=== PATIENT | female | born 1950 | race Caucasian/White ===

== ENCOUNTER → 2017-07-31 | Outpatient (CLI) | payer OTHER, BC | LOC: NUC 08:18 | DX: M81.0 Age-related osteoporosis without current pathological fracture (principal); M85.89 Other specified disorders of bone density and structure, multiple sites; Z78.0 Asymptomatic menopausal state ==

== ENCOUNTER → 2019-03-10 | Outpatient (CLI) | payer OTHER, BC | LOC: NUC 10:20 | DX: M81.0 Age-related osteoporosis without current pathological fracture (principal) ==

== ENCOUNTER 2019-09-17 09:52 | Inpatient (IN) | payer OTHER, BC ==
[~2019-09-17] VITALS: Ht 13.9 cm; Wt 58.7 kg
[2019-09-17] MEDS ORDERED: AZELASTINE205.5 MCG/ OPHTHALMIC (10:18)
[2019-09-17] MEDS ORDERED: CLONAZEPAM 0.50.5 M1 PO (10:19)
[2019-09-17] MEDS ORDERED: LITHIUM CARBON300 M3 PO (10:20)
[2019-09-17] MEDS ORDERED: DULCOLAX STOOL100 M1 PO (10:20)
[2019-09-17] MEDS ORDERED: OMEPRAZOLE40 MG PO (10:21)
[2019-09-17] MEDS ORDERED: ESKALITH CR450 MG PO (10:21)
[2019-09-17] MEDS ORDERED: INDERAL LA120 M1 PO (10:21)
[2019-09-17] MEDS ORDERED: QUETIAPINE FUM400 M1 PO (10:25)
[2019-09-17] MEDS ORDERED: SEROQUEL 25 MG25 M1 PO (10:25)
[2019-09-17] MEDS ORDERED: RANITIDINE 150150 MG PO (10:26)
[2019-09-17] MEDS ORDERED: IRON325 M1 PO (10:28)
[2019-09-17] MEDS ORDERED: DESYREL150 MG PO (10:28)
[2019-09-17] MEDS ORDERED: PEPCID40 MG PO (10:30)
[2019-09-17] MEDS ORDERED: ZINC SULFATE220 MG PO (10:30)
[2019-09-17] MEDS ORDERED: VITAMIN B-121000 MC2 PO (10:31)
[2019-09-17] MEDS ORDERED: VITAMIN D250000 UNIT PO (10:31)
[2019-09-17 10:57] LABS: URINE BILIRUBIN NEGATIVE (Negative); URINE BLOOD NEGATIVE (Negative); URINE CLARITY CLEAR; URINE COLOR YELLOW; URINE GLUCOSE-RANDOM* NEGATIVE (Negative); URINE KETONES NEGATIVE (Negative); URINE LEUKOCYTES-REFLEX NEGATIVE (Negative); URINE PROTEIN (DIPSTICK) NEGATIVE (Negative); URINE SPECIFIC GRAVITY <= 1.005 (1.005-1.035)
[2019-09-17 10:59] LABS: ABSOLUTE NEUTROPHILS 4.3 thou/uL (1.4-8.2); BASOPHILS 0.8 % (0.0-2.0); EOSINOPHILS 3.7 % (0.0-3.0); HEMATOCRIT 35.2 % (37.0-47.0); HEMOGLOBIN 11.5 gm/dL (12.0-15.0); LYMPHOCYTES 18.8 % (24.0-44.0); MCH 31.3 pg (26.0-34.0); MCHC 32.6 g/dL (28.0-37.0); MONOCYTES 6.2 % (1.0-8.0); PLATELET COUNT 347 thou/uL (150-400); POLYS 70.5 % (36.0-66.0); RBC 3.66 mil/uL (4.20-5.00); RDW 13.9 % (10.5-14.5); WBC 6.2 thou/uL (4.0-11.0)
[2019-09-17 11:01] LABS: URINE NITRITE-REFLEX POSITIVE (Negative)
[2019-09-17 11:04] LABS: ANION GAP 5 mmol/L (7-16); BUN 20 mg/dL (7-18); CALCIUM 9.8 mg/dL (8.5-10.1); CHLORIDE 104 mmol/L (98-107); CO2 27 mmol/L (21-32); CREATININE 1.3 mg/dL (0.6-1.0); GLUCOSE 109 mg/dL (74-106); POTASSIUM 3.9 mmol/L (3.5-5.1); SODIUM 136 mmol/L (136-145)
[2019-09-17 11:10] LABS: BACTERIA-REFLEX 1-9 Few /HPF (None Seen); CASTS None Seen /LPF (None Seen); CRYSTALS None Seen /LPF (None Seen); SQUAMOUS None Seen /LPF (0-3); URINE RBC 0-2 Rare /HPF (0-2); URINE WBC-REFLEX None Seen /HPF (0-5)
[2019-09-17 11:16] LABS: AMP/METHAMP Negative (Negative); BARBITURATES Negative (Negative); BENZODIAZEPINES Negative (Negative); COCAINE Negative (Negative); METHADONE Negative (Negative); OPIATES Negative (Negative); PCP Negative (Negative)
[2019-09-17 11:16] LABS: ALBUMIN 3.7 g/dL (3.4-5.0); SALICYLATE < 2.8 mg/dL (2.8-20.0); SGOT 15 U/L (15-37); SGPT 15 U/L (30-65); TOTAL BILIRUBIN 0.4 mg/dL (<0.1-1.0)
[2019-09-17 12:03] VITALS: BP 153/87
[2019-09-17 12:36] VITALS: BP 160/121
[2019-09-17 13:09] VITALS: BP 155/108
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
--- NOTE | 2019-09-17 16:43 | NUR ---
RECEIVED HALDOL 5MG AND ATIVAN 1MG IM AT APPROX 1530 FOR INCREASED RESTLESSNESS/ANXIETY-AGITATION YELLING OUT "HELP ME,HELP ME" LOUDLY TEARFUL. OUT OF BED 3-4 TIMES TRIGGERING ALARM-WHEN [PLACED IN DAYROOM UP SEVERAL TIMES APPEARING UNABLE TO SIT STILL-YELLING AT [facility] "HELP ME-HELP ME" GAIT IS UNSTEADY
--- NOTE | 2019-09-17 17:41 | EKG ---
[place] [address] [place] [address] ELECTROCARDIOGRAM REPORT Name: SEEMA CAGE Room #: 518A-A ADM IN M.R.#: [id number] Admission: 09/17/19 Attend Phys: Nahun Coughlin DO Discharge: Date of : 50 Report #: [id number] THIS REPORT FOR: //name// [facility] ED Test Date: 2019-09-17 Test Time: 12:29:56 Pat Name: SEEMA CAGE Department: Room: [facility] Gender: F Station Engineer: RONNY : 1950 Requested By: Ish Calles Order Number: [id number] MD: Morris Fry Measurements Intervals [place] Rate: 113 P: 81 HI: 146 QRS: 178 QRSD: 115 T: 35 QT: 386 QTc: 530 Interpretive Statements Sinus tachycardia Poor R wave progression Artifact in lead(s) I,aVR,aVL,V1,V2,V3,V4,V5,V6 Compared to ECG 04/24/2000 13:43:43 no significant change was found Electronically Signed On 09-17-2019 17:41:07 CDT by Morris Fry [email or web address] <ELECTRONICALLY SIGNED> By: Morris Fry MD, FAC 09/17/19 1741 1229 1229 Morris Fry MD, LOCATED WITHIN [facility] /EPI
[2019-09-17 19:40] VITALS: BP 127/79
[2019-09-18 00:45] VITALS: BP 127/79
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
[2019-09-18 09:03] VITALS: BP 132/68
--- NOTE | 2019-09-18 11:12 | NUR ---
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 She usually cycles through her manic phases every 3 to 4 years but now is rapid cycling and has spent most of her time in inpt this last 2 years. Dght admits that she cannt go home and will need a Level II completed and an AL with memory care for a [place] placement.
--- NOTE | 2019-09-18 14:04 | NUR ---
HAS HAD EPISODES OF LOUD CRYING,SOBBING THROUGHOUT SHIFT. YELLING OUT-"PLEASE HELP,PLEASE HELP I NEED JUICE" OR "COME AND GET THE FOOD OUT OF MY HAIR" REPEATING "PLEASE,PLEASE" SPEECH IS SLURRED-APPEARS DROWSY. GAIT UNSTEADY AT TIMES-IMPULSIVE AND INTRUSIVE AT TIMES ENTERING [facility] ROOMS TO GET STAFF. ORIENTED TO NAME AND PLACE. ATIVAN 1MG GIVEN PO PRN AT 0915 WITH AM MEDICATIONS. ABLE TO FEED SELF AT MEALS AND TAKES PO FLUIDS WELL. DENIES C/O PAIN BUT LATER STATES "BLADDER HURTS" PREOCCUPIED WITH URINATION-HAS VOIDED X2-3 SO FAR THIS SHIFT BUT STATES HAS NOT BEEN ABLE TO URINATE FOR "DAYS" NO NOTED OR REPORTED A/V HALLUCINATIONS. SOME DELUSIONAL THINKING IN FORM OF DELUSIONS OD PERSECUTION -"YOU GAVE EVERYONE ELSE THEIR TRAY EXCEPT ME"
[2019-09-18 19:35] VITALS: BP 113/75
[2019-09-18 21:15] VITALS: BP 113/75
--- NOTE | 2019-09-18 21:34 | NUR ---
PT TO CT FOR EXAM. PT NOW IN ED WITH PA ASSESSING PATIENT.
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
--- NOTE | 2019-09-18 21:44 | NUR ---
SKY SUTURING PATIENT'S LACERATION.
--- NOTE | 2019-09-18 21:47 | NUR ---
PT ALSO GETTING ISAAK TO LAC SITE. REMAINS AT BASELINE NEUROLOGICALLY.
--- NOTE | 2019-09-18 21:49 | NUR ---
Spoke with Dr. Gale regarding fall. Reports to call him if CT abnormal.
[2019-09-18 22:15] VITALS: BP 140/81
--- NOTE | 2019-09-19 05:08 | NUR ---
The pts. neuro checks q 2 hours tonite in the nite were wnl. She was awakened for the checks, as she slept snoring at times but sleeping otherwise soundly. She said "Oh, hi, what do you want" when awakened/groggy still, compliant with assessment, and returned to sleep.
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
[2019-09-19 08:28] VITALS: BP 134/82
--- NOTE | 2019-09-19 08:39 | EKG ---
[address] [place] [address] ELECTROCARDIOGRAM REPORT Name: SEEMA CAGE Room #: 518B- ADM IN M.R.#: [id number] Admission: 09/17/19 Attend Phys: Nahun Coughlin DO Discharge: Date of : 50 Report #: [id number] THIS REPORT FOR: //name// [facility] Test Date: 2019-09-18 Test Time: 11:35:41 Pat Name: SEEMA CAGE Department: Room: [facility] Gender: F Scientist/Engineer: Eugenia EVANGELISTA : 1950 Requested By: Nahun Coughlin Order Number: [id number] MD: Morris Fry Measurements Intervals [place] Rate: 64 P: 70 NC: 170 QRS: 35 QRSD: 97 T: 50 QT: 417 QTc: 431 Interpretive Statements Sinus rhythm Normal tracing Compared to ECG 09/17/2019 12:29:56 Sinus tachycardia no longer present Poor R-wave progression no longer present Electronically Signed On 09-19-2019 8:39:28 CDT by Morris Fry [email or web address] <ELECTRONICALLY SIGNED> By: Morris Fry MD, [facility] 09/19/19 0839 1135 1135 Morris Fry MD, [facility] /EPI
[2019-09-19 10:43] VITALS: BP 134/82
--- NOTE | 2019-09-19 15:06 | NUR ---
THE PATIENT HAS BEEN ANXIOUS, IRRITATED AND VERY IMPULSIVE THROUGH OUT THE DAY. SHE CONTINUOUSLY CHATTED ALOUD ANNOYING THE OTHER PATIENTS. THE PATIENT WAS ADMINISTERED PRN'S IM THIS MORNING. THE PATIENT'S THORAZINE MEDICATION WAS INCREASED. SHE HAS DIFFICULTY FOCUSING AND SHE IS EMOTIONALLY UNSTABLE. THE PATIENT HASNT HAD MUCH SLEEP IN THE LAST 24 HOURS. SHE IS NOW SLEEPING BUT HAS AWAKEN PERIODICALLY. HER MEAL INTAKE HAS BEEN MINIMUM TODAY. HOWEVER, SHE EATS HER MEALS IN THE DAY ROOM. NEURO CHECKS HAVE BEEN WNL'S. THE PATIENT QUESTIONS STAFF TO CALL HER DAUGHTER LORENA WHO IS HER DPOA SEVERAL TIMES THIS MORNING. BUT HER DAUGHTER WAS NOT AVAILABLE. THE PATIENT ESCALATED BUT WAS REDIRECTED WITH VERY LITTLE RESULTS FROM THE PATIENT. FOR HER SAFETY SHE IS IN A WC WHEN TRANSPORTING WITH A LAP YURIDIA. SHE IS VERY IRRITATED WITH BEING IN THE WC. TO CANTACT THE DOCTORS. SHE IS MANIC AND RESTLESS MOST OF THE TIME. SHE IS INCONTINENT BUT WILL ASK STAFF TO TAKE HER TO THE BATHROOM. SHE IS WEARING BRIEFS AND DO NOT LIKE IT. 12 TO 15 MIN. CHECKS. AT THIS TIME SHE IS RESTING QUIETLY. CONTINUE TO MONITOR THE PATIENT.
[2019-09-19 17:00] VITALS: BP 114/67
[2019-09-19 20:34] VITALS: BP 126/72
--- NOTE | 2019-09-20 07:45 | NUR ---
1909-report received from day shift and care assumed. She was chanting and singing songs in the nite almost continously. She wanted later to go into her room and do chanting. She was attended to when she requested to toilet her in the bathroom in the nite. She takes meds. whole with water. She asked to not "be left alone", "do you still love me?' while she chanted. She said when asked why she yells all the time she said "it is my ackathesia".She was given Ativan 1mg. po and Haldol 5 mg. po at 2122 for anxiety and was HS med. compliant and this was not effecitve. She had Tylenol 650 mg. po for head pain also, and it was effectife. was called at 0240 for another med. for anxiousness and she was given Seroquel 50 mg. po x 1 now and it was partially effective for about only 2 hours. She slept total 5 hours tonite. She was given Hydrocodone/apap at 0501 for head pain/bavck of head and she reported it was effective this morning. She used fall precautions in the nite, bed and chair alarm, and was continent in the nite with staff assist. anxiety/chanting loud
--- NOTE | 2019-09-20 14:56 | NUR ---
CONTINUES TO SING OUT AND CHANT, REPETITAVE THINGS, SUCH "DO YOU LOVE ME", PLEASE HELP ME" SHE WILL SING AND REPEAT CONSTANTLY, SHE IS NOT AGGRESSIVE OR ANGRY, ALERT AND ORIENTED, WHEN SHE IS DIRECTABLE SHE WILL ANSWER QUESTIONS APPROPRIATELY, SHE DOES QUIET HERSELF WHEN SHE IS REMINDED, SHE IS MEDICATION AND MEAL COMPLIANT, DENIES SI/HI AND AVH, BUT DOES STATE SHE THINKS SHE IS DEPRESSED. CONTINUE TO MONITOR FOR SAFETY AND BEHAVIORS, REDIRECT AND REMIND NEEDED.
[2019-09-20 15:19] VITALS: BP 144/90
[2019-09-20 20:00] VITALS: BP 155/83
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
--- NOTE | 2019-09-21 | NUR ---
ASSUMED CARE FROM PREVIOUS SHIFT PT YELLING OUT WANTING WATER AND TO BE CHANGED DUE TO HER INCONTINENT, DENIES PAIN, ATTEMTED TO DISCUSS PLAN OF CARE BUT PT IS CONFUSED. BED ALARM ON FOR SAFETY, FREQ ROUNDING PER PROTOCOL, PO MEDICATION TAKEN EASILY, WILL CONTINUE WIT PRESENT PLAN OF CARE AND WILL REPORT CHANGES OR ABNORMAL FINDINGS.
[2019-09-21 09:03] VITALS: BP 94/57
--- NOTE | 2019-09-21 11:08 | NUR ---
UP FOR BREAKFAST, SHE IS WEAK AND HAS TREAMORS THIS MORNING, SHE HAS TAKEN HER MEDICATION, AND NEEDED ASSISTANCE WITH FEEDING, SHE HAS NOT CRIED OUT MUCH THIS MORNING, BUT VOICE IS NOT LOUD, SHE REMAINS A HIGH FALL RISK, LACERATION ON BACK OF HER HEAD IS INTACT WITH SUTURES, SHE HAS NO COMPLAINTS OF PAIN, INCONTINENT OF BLADDER THIS A.M. WILL CONTINUE TO MONITOR FOR BEHAVIORS AND SAFETY ISSUES.
[2019-09-21 19:50] VITALS: BP 116/69
--- NOTE | 2019-09-21 23:03 | NUR ---
PATIENT IN BED SINCE I CAME ON UNIT AT 1900. SHE DID SIT UP ON SIDE OF BED WHEN I GAVE HER HER HS MEDS. SHE HAS BEEN UP TO THE BATHROOM TO VOID. PATIENT STILL CALLS OUT OCCASIONALLY IN A SING SONGY VOICE WHEN SHE NEEDS SOMETHING. LACERATION TO BACK OF HEAD INTACT, NO OOZING. PATIENT WANTED TO GO BACK TO SLEEP AFTER TAKING EVENING MEDS. SHE IS SLEEPING AT THIS TIME. SHE HAS A FLAT AFFECT TO HER FACE AND MONOTONE VOICE. HER LAST BM WAS ON THE . PATIENT TOOK HER MEDS WHOLE TONITE WITH WATER. SHE REFUSED A SNACK. BED IN LOW POSITION AND BED ALARM ON.
[2019-09-21 23:09] VITALS: BP 116/69
[2019-09-22 08:09] VITALS: BP 148/93
[2019-09-22 10:42] VITALS: BP 148/93
--- NOTE | 2019-09-22 11:23 | NUR ---
THE PATIENT HAS BEEN IN THE DAY ROOM THIS AM DROWSY. THE PATIENT AMBULATED WITH PT AND REPORT WAS THAT SHE DID NOT DO SO WELL.PT EXPRESSED THAT IT'S PROBABLY BECAUSE SHE IS DROWSY AND SLEEPY. THE PATIENT IS ALERT. SHE IS IN A WC WITH A LAP YURIDIA FOR HER SAFETY. THE PATIENT CONTINUES TO HUM ALOUD DURING MEALS WHEN SHE IS NOT EATING. SHE IS INCONTINENT BUT SHE WILL ASK TO GO TO THE BATHROOM AT TIMES. SHE HAS BEEN ORDERED A SPEECH CONSULT. TOE ON RIGHT FOOT IS BROKEN AND WEDGED TOGETHER. HEAD ISAAK IN PLACE. PATIENT IS ENCOURAGED TO FEED HERSELF. HOWEVER, STAFF HAS BEEN ASSISTING WITH MEALS.
--- NOTE | 2019-09-22 16:13 | NUR ---
YOU and Dr campos met with pt's dght and son. YOU provided them with a referral for [employer] sales executive to find placement. YOU provided placement options too.
[2019-09-22 20:08] VITALS: BP 120/79
[2019-09-22 23:03] VITALS: BP 120/79
--- NOTE | 2019-09-23 03:30 | NUR ---
PT IN DAYROOM EARLY IN SHIFT. DROWSY BUT ABLE TO RESPOND TO STAFF. HEAD WOUND CLEAN. VSS AND PT ALLOWED STAFF TO ASSESS. QUIET AND COOPERATIVE. AFTER HS MEDS AND SNACK, ESCORTED TO ROOM AND ASSISTED TO BED. CURRENTLY SLEEPING.
[2019-09-23 09:04] VITALS: BP 158/95
[2019-09-23 10:51] VITALS: BP 158/95
[2019-09-23 15:24] LABS: CALCIUM 10.2 mg/dL (8.5-10.1); CREATININE 1.1 mg/dL (0.6-1.0); POTASSIUM 4.5 mmol/L (3.5-5.1)
--- NOTE | 2019-09-23 16:19 | NUR ---
THE PATIENT HAS BEEN LETHARGIC THROUGH OUT THE SHIFT. SHE IS ALERT WHEN SHE IS SPOKEN TO. NO URINE OUTPUT AT 1622. THE PATIENT POSSIBLY VERY DRY. NO FOOD OR MEDICATIONS DURING BREAKFAST AND LUNCH. THE PATIENT WAS ORDERED A BMP, BLADDER SCAN PER 386 ML. A STRAIGHT CATH HAS BEEN ORDERED. HER CREATININE WAS 1.0. THE PATIENT KEEPS HER EYES CLOSED. LIPS ARE PORACHED AND DRY. THORAZINE AND DESYREL DISCONTINUED. PATIENT HAS BEEN QUIET AND CALM. SHE HAS BEEN SITTING IN A JERMAINE CHAIR WITH A LAP YURIDIA ON.
--- NOTE | 2019-09-23 17:00 | NUR ---
ATTEMPTED TO STRAIGHT CATH PT WITH 15 [place] CHANDLER, ATTEMPT UNSUCCESSFUL DUE TO PT CLINCHED UP AND UNABLE TO PENETRATE MEATUS. PT SHAKING TO ARMS AND LEGS, TREMOR TO MOUTH AND TOUNGE. WILL ATTEMPT WITH SMALLER STRAIGHT CATH.
--- NOTE | 2019-09-23 17:20 | NUR ---
GAVE PT ORAL CARE, PT STOPPED TREMORS TO MOUTH, TOUNGE, AND EXTREMETIES. PT APPEARS CALM.
--- NOTE | 2019-09-23 17:56 | NUR ---
PT HAD VOIDED LARGE AMOUNT OF URINE BEFORE SECOND ATTEMPT TO STRAIGHT CATH. PT CLEANED AND PUT ON FRESH BRIEF, PT BACK TO RECLINER AND TO DINNING ROOM. PT EYES OPEN.
[2019-09-23 20:16] VITALS: BP 152/92
--- NOTE | 2019-09-24 05:07 | NUR ---
Report received from day shift nurse at 1900 and care assumed. VS 36.8C, p=111, wo=359/92, oxy. 97%. She was lethargic in the evening, responded to her name, was quiet, and was taken to her bed. Her respirations were even and regular, she rested quietly all nite. She had a flushed face at about 0400 and temp. taken and =99.5 F. Nurse was successful with straight cath. and sample of urine per order.She was mumbling to herself and answered. Said yes to questions and tremoulous slight. She is resting again in her bed and awaiting UA report.
[2019-09-24 05:48] LABS: URINE BILIRUBIN NEGATIVE (Negative); URINE BLOOD 3+ (Negative); URINE CLARITY SL CLOUDY; URINE COLOR YELLOW; URINE GLUCOSE-RANDOM* NEGATIVE (Negative); URINE KETONES NEGATIVE (Negative); URINE NITRITE-REFLEX NEGATIVE (Negative); URINE PROTEIN (DIPSTICK) NEGATIVE (Negative); URINE UROBILINOGEN 0.2 E.U./dl (0.2-1.0)
[2019-09-24 05:53] LABS: URINE LEUKOCYTES-REFLEX 3+ (Negative)
[2019-09-24 06:08] LABS: BACTERIA-REFLEX >30 Many /HPF (None Seen); CASTS None Seen /LPF (None Seen); CRYSTALS None Seen /LPF (None Seen); MUCUS 0-3 Light strn/LPF (None Seen); SQUAMOUS 0-3 Few /LPF (0-3); TRANSITIONAL EPITHEL CELL 4-10 Moderate /LPF (None Seen)
--- NOTE | 2019-09-24 06:40 | NUR ---
The UA result was received. The on-call Nurse Practioner was called and Cipro 500 mg. po BID for 1 week was ordered. Culture is pending.
--- NOTE | 2019-09-24 10:51 | NUR ---
UPON INITIAL ASSESSMENT THIS AM IN ROOM EYES CLOSED-WILL RESPOND TO VERBAL COMMANDS AND REPOSITIONING WITH LOW MOANING BUT DOES NOT FOLLOW VERBAL COMMANDS TO OPEN EYES. FEELS WARM TO TOUCH-TEMP TAKEN AND IS 100.6. SOMULENT AND LETTING CRUSHED AM MEDS RUN OUT OF MOUTH-DR. KLEIN NOTIFIED AND ORDERS RECEIVED. DR. CONN ON FLOOR AT 0930 AND NOTIFIED OF ABOVE. THIS RN SPOKE WITH PT GUARDIan DAUGHTER LORENA WHO IS REQUESTING IV FLUIDS/ABX AND "WHATEVER IT TAKES TO GET HER BETTER" FULL CODE STATUS VERIFIED WITH DAUGHTER. IV STARTED IN LEFT FOREarm with 22 gaugue needle at approx 1000 and iv fluids initated per md order. STAFF AT BEDSIDE DURING IV FLUIDS INFUSING.
--- NOTE | 2019-09-24 10:57 | NUR ---
Pt admitted to [facility] unit on 09/17. Has been seen by speech therapist and changed to puree nectar diet 2 days ago. Team conference meeting this am: concerns for pt being obtunded, not eating, and need for possible medical intervention and transfer to acute unit. Will follow plan of care.
[2019-09-24 11:27] LABS: ABSOLUTE NEUTROPHILS 9.6 thou/uL (1.4-8.2); BASOPHILS 0.2 % (0.0-2.0); EOSINOPHILS 0.3 % (0.0-3.0); HEMATOCRIT 39.1 % (37.0-47.0); HEMOGLOBIN 12.6 gm/dL (12.0-15.0); LYMPHOCYTES 8.8 % (24.0-44.0); MCH 31.1 pg (26.0-34.0); MCHC 32.1 g/dL (28.0-37.0); MCV 96.7 fL (80.0-100.0); PLATELET COUNT 425 thou/uL (150-400); POLYS 82.7 % (36.0-66.0); RBC 4.04 mil/uL (4.20-5.00); RDW 14.2 % (10.5-14.5); WBC 11.6 thou/uL (4.0-11.0)
[2019-09-24 11:37] LABS: CALCIUM 10.3 mg/dL (8.5-10.1); CREATININE 1.2 mg/dL (0.6-1.0)
--- NOTE | 2019-09-24 14:32 | NUR ---
SW completed and submitted the DA 124 abc for a level II screen. The pt advocate that was referred to the family was Kaye Horta with [facility] [phone]. family is considering a LTC placement and stated they have the resources to cover these expenses.
--- NOTE | 2019-09-24 17:33 | NUR ---
SPOKE WITH PATIENTS DAUGHTER LORENA REGARDING DC FROM [address] [place] [address] AND PENDING ADMIT TO [address] [place] [address] [phone] CALLED TO JASON AND AWAITING DC/ROOM CLEAN TO TRANSFER TO [address] [place] [address] ACROSS FROM NURSING STATION D/T PT RECENT FALL AND HIGH FALLS RISK. DC MEDS INSTRUCTIONS REVIEWED WITH LORENA-PROVIDED WITH CONTACT NUMBER AND NEW ROOM NUMBER. IV FLUIDS NS INFUSING PER ORDER AT 125ML/HR PER MD ORDER. HAS BEEN INCONTNINET OF LARGE amounts oF URINE X3 SO FAR THIS SHIFT-PLACED ON BED WATT X 2 AND SO FAR HAS NOT USED. MORE ALERT WILL OPEN EYES ON COMMAND AND HAS REQUESTED SOMETHING TO DRINK X 2- WILL OCCASSIONALLY MOAN SOFTLY BUT NODS HEAD NO WHEN ASKED IF HAVING ANY PAIN/DISCOMFORT. VS OBTAINED AT 1700 AND BP 164/101 VIA MACHINE-FINE TREMOR OF UPPER EXTREMETIES AND HEAD/TORSO. BP CHECKED MANUALLY AND IS 160/72-N885-F-14 TEMP 98.9 O2 SAT 98 PERCENT. TYLENOL 650MG PO PRN CRUSHED ALONG WITH 1700 INDEROL CRUSHED WITH YOGURT-DID APPEAR TO SWALLOW WITHOUT DIFFICULTY BUT COUGHED 2-3 TIMES AFTER SWALLOWING.
[2019-09-24 17:43] VITALS: BP 160/80
--- NOTE | 2019-09-24 19:22 | NUR ---
PT REMAINS SOMULENT BUT RESPONSIVE TO VERBAL COMMANDS AT TIME OF DC. VS STABLE BP 154/70- P-98 R-14 02 SAT 98 PERCENT ON RA. IV TO LEFT FOREARM PATNET AND INGUSING NS AT RATE OF 125/HR PER ORDER DR. KLEIN. AFEBRILE CURRENTLY-TEMP 98.2 APPROX 45 MINUTES AFTER ADMINISTRATION OF PO TYLENOL. INCONTINENT OF URINE AND PERINEAL CARE PROVIDED,BARRIER CREAM APPLIED AND PT REPOSITIONED ON LEFT SIDE-NO OPEN AREAS TO SKIN NOTED DURING PERINEAL CARE.
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
== END 2019-09-24 19:28 | disposition short-term general hospital (02) | DRG 885 ==
LOC: ER 09:52 → SBH 12:05 → EROBS 12:05 → SBH 12:37
PROVIDERS: Emergency Medicine; ADMIT Psychiatry & Neurology Psychiatry
PROC: 0HQ0XZZ Repair Scalp Skin, External Approach (ICD-10-PCS; principal; 2019-09-18)
DX: F31.2 Bipolar disorder, current episode manic severe with psychotic features (principal); A41.9 Sepsis, unspecified organism; N39.0 Urinary tract infection, site not specified; N17.9 Acute kidney failure, unspecified; J98.11 Atelectasis; F03.90 Unspecified dementia, unspecified severity, without behavioral disturbance, psychotic disturbance, mood disturbance, and anxiety; F41.9 Anxiety disorder, unspecified; G20 Parkinson's disease; F02.80 Dementia in other diseases classified elsewhere, unspecified severity, without behavioral disturbance, psychotic disturbance, mood disturbance, and anxiety; D64.9 Anemia, unspecified; K21.9 Gastro-esophageal reflux disease without esophagitis; K59.00 Constipation, unspecified; S01.01XA Laceration without foreign body of scalp, initial encounter; X58.XXXA Exposure to other specified factors, initial encounter; Y93.89 Activity, other specified; Z79.899 Other long term (current) drug therapy; Z88.0 Allergy status to penicillin; Z88.1 Allergy status to other antibiotic agents; Y92.89 Other specified places as the place of occurrence of the external cause; Y99.8 Other external cause status
CPT/HCPCS: 10880

== ENCOUNTER 2019-09-24 16:50 | Inpatient (IN) | payer OTHER, BC ==
[~2019-09-24] VITALS: Ht 167.6 cm; Wt 67.6 kg
[~2019-09-24 16:50] MED LIST: AZELASTINE205.5 MCG/ OPHTHALMIC; CLONAZEPAM 0.50.5 M1 PO; DESYREL150 MG PO; DULCOLAX STOOL100 M1 PO; ESKALITH CR450 MG PO; INDERAL LA120 M1 PO; IRON325 M1 PO; LITHIUM CARBON300 M3 PO; OMEPRAZOLE40 MG PO; PEPCID40 MG PO; QUETIAPINE FUM400 M1 PO; RANITIDINE 150150 MG PO; SEROQUEL 25 MG25 M1 PO; VITAMIN B-121000 MC2 PO; VITAMIN D250000 UNIT PO; ZINC SULFATE220 MG PO
[2019-09-24 22:03] VITALS: BP 156/69
--- NOTE | 2019-09-25 | NUR ---
Admitted from [facility]. Patient awake in catatonic state. Admission history and assessments completed. Care plan initiated. Admission orders received from Dr Pimentel. IVFluids and IV abx started.
[2019-09-25 03:55] VITALS: BP 178/94
[2019-09-25 04:28] VITALS: BP 165/99
[2019-09-25 05:51] LABS: ABSOLUTE NEUTROPHILS 8.5 thou/uL (1.4-8.2); BASOPHILS 0.4 % (0.0-2.0); HEMATOCRIT 38.2 % (37.0-47.0); HEMOGLOBIN 12.3 gm/dL (12.0-15.0); LYMPHOCYTES 10.8 % (24.0-44.0); MCH 31.5 pg (26.0-34.0); MCHC 32.1 g/dL (28.0-37.0); MCV 97.9 fL (80.0-100.0); MONOCYTES 8.4 % (1.0-8.0); PLATELET COUNT 383 thou/uL (150-400); POLYS 79.4 % (36.0-66.0); RDW 14.5 % (10.5-14.5); WBC 10.7 thou/uL (4.0-11.0)
[2019-09-25 05:53] LABS: ALBUMIN 3.2 g/dL (3.4-5.0); CALCIUM 10.1 mg/dL (8.5-10.1); POTASSIUM 3.8 mmol/L (3.5-5.1); TOTAL BILIRUBIN 0.3 mg/dL (<0.1-1.0); TOTAL PROTEIN 7.1 g/dL (6.4-8.2)
[2019-09-25 08:27] VITALS: BP 148/94
--- NOTE | 2019-09-25 12:55 | NUR ---
PT ADMITTED FROM [address] RELATED TO UTI, JOLANTA, AND AMS. CM REVIEWED CHART AND SPOKE WITH CARE TEAM. CM MET WITH PT AT BEDSIDE THIS DAY BUT SHE WASN'T ABLE TO ANSWER ASSESSMENT QUESTIONS. SHE INDICATED THAT CM COULD SPEAK WITH HER DTR AND SON. DTR LORENA, SON AVELINA, AND SPOUSE EVER ARE LISTED GUARDIAN IN [employer] BUT NO PAPERWORK IN CHART. CM CALLED PT'S DTR LORENA AND SHE CONFIRMED THAT PT HAD BEEN AT [address] [facility] AND THAT SHE HAS BOUNCED IN AND OUT OF INPATIENT PSYC, [facility] AND HOME WITH BENEFITS OF HOME CAREGIVERS IN THE PAST. SHE INDICATED THAT THEY ARE WORKING WITH SHANON MINAYA WITH [employer] TO FIND LTC PLACEMENT FOR PT ONCE MEDICALLY [place]. SHE INDICATED THAT SHANON IS OUT OF TOWN UNTIL SUNDAY. CM TO FOLLOW INDICATED WITH DC PLANNING. THEY INDICATED THAT PT'S SPOUSE HAS DEMENTIA. LORENA CORDOVA , AVELINA CAGE .
[2019-09-25 15:20] VITALS: BP 161/95
--- NOTE | 2019-09-25 19:47 | NUR ---
PATIENT ALERT TO HER FIRST NAME ONLY. UNABLE TO STATE HER , PLACE OR SITUATION. PATIENT'S DTR FER VISITED THIS AM AND SIGNED ADMISSION PAPERWORK. PATIENT EATING VERY LITTLE. IS A TOTAL FEED. TURNED Q2H. INCONTINENT. PERICARE GIVEN. FALL PRECAUTIONS IN PLACE. PATIENT VERY TREMOROUS AND STIFF WHEN TURNING.
[2019-09-25 21:35] VITALS: BP 188/81
--- NOTE | 2019-09-26 04:33 | NUR ---
ASSESSMETN: PT REMAIN ALERT TO PERSON ONLY. CONFUSED TO TIME, PLACE AND SITUATION. PT DOES NOT REMEMBER THIS RN CARING FOR HER ON . PT HAS SEVERE TREMORS R/T PARKINSONS AND POSSIBLE WITHDRAWING FROM PSYCH MEDS. TURNED EVERY TWO HOURS, INCONTINENT TO BLADDER, NO BM. LOW GRADE TEMP OF 100.3, TYLENOL GIVEN WITH GOOD RESULTS. FEVER DECREASED. PT TOLERATED EATING ICE CREAM. PT NEEDS TO BE FED. SLOW PROGRESS TOWARDS DC GOALS, WILL CONTINUE TO MONITOR.
[2019-09-26 05:27] VITALS: BP 166/85
[2019-09-26 09:23] VITALS: BP 171/89
[2019-09-26 09:57] VITALS: BP 150/93
--- NOTE | 2019-09-26 11:07 | NUR ---
Received awake on bed. Due medications given as prescribed, able to swallow meds w/o difficulty. A+O to self only, with tremors noted. On room air. On Pureed, nectar thick diet- assisted in eating, drinking and ADLs. Pt incontinent of B/B. Vital signs stable, with BP elevation noted- rechecked, WNL after rechecking; pt still with low grade fever- tylenol given as prescribed, temp rechecked from time to time. Pt turned regularly on her sides, barrier cream applied on her buttocks. With NS 125cc/hr, infusing well at R FA.
[2019-09-26 15:06] VITALS: BP 129/57
--- NOTE | 2019-09-26 15:15 | NUR ---
FAMILY WORKING WITH [facility] TO FINE LTC PLACEMENT. CM TO FOLLOW AND ASSIST ABLE. IT IS ANTICPATED THAT PT WILL BE HERE OVER THE WEEKEND.
[2019-09-26 19:16] VITALS: BP 186/93
--- NOTE | 2019-09-27 02:28 | NUR ---
ASSUMED CARE FROM DAY SHIFT PT RESTING IN BED, DENIES PAIN IV FLUIDS INFUSING WELL PT TURNED EVERY 2 HOURS INCONTINENT OF YELLOW URINE. PT ANSWER YES AND NO OTHERWISE VERY LITTLE VERBAL NOTED. WILL CONINTUE CURRENT PLAN OF CARE AND REPORT CHANGES OR ABNORMAL FINDINGS.
[2019-09-27 07:46] VITALS: BP 166/106
[2019-09-27 16:21] VITALS: BP 195/110
--- NOTE | 2019-09-27 17:01 | NUR ---
Received awake on bed. Due medications given as prescribed. A+O to self only. On room air. On pureed, nectar thick diet- pt is a feeder; assisted in eating, drinking and ADLs. With tremors noted, doctor aware. Incontinent of bowel and bladder, pt checked frequently and pad changed as needed. With Normal saline at 125cc/hr, infusing well at R FA. Pt turned regularly on her sides. Pt with low grade fever, PRN tylenol given as prescribed, cold wash lot and bed bath given to pt. Dr Iyer saw the pt this AM, with notes re: psych meds- informed him that Dr Pimentel held psych meds upon admission due to altered mental status; With elevated blood pressures- Dr Iyer informed that pt does not have a scheduled or PRN BP meds- will review pt's meds and prescribed if needed. BP of 195/[address] Iyer- a/w reply re: BP meds. Paged Dr Iyer again re: elevated bp- still a/w reply; BP rechecked manually- still elevated.
[2019-09-27 18:00] VITALS: BP 107/65
[2019-09-27 20:14] VITALS: BP 92/36
[2019-09-28 01:00] VITALS: BP 163/79
[2019-09-28 03:39] VITALS: BP 165/88
--- NOTE | 2019-09-28 04:13 | NUR ---
ASSUMED CARE OF PT AT 1900HRS. PT IS ALERT BUT ONLY ORIENTED TO SELF. FALL PRECAUTION IN PLACE. EXTERNAL CATH PLACED AND IS FUNCTIONING WELL. DR CONN CALLED AND ORDERS WERE RECIVED. PT WAS BATHED THIS SHIFT. PT HAS HAD A FEVER THIS SHIFT AND WAS MEDICATED. PT WAS ABLE TO GET COMFORTABLE AND SLEEP PART OF THE SHIFT. WILL CONTINUE TO MONITOR.
[2019-09-28 04:39] LABS: HEMATOCRIT 40.8 % (37.0-47.0); HEMOGLOBIN 13.1 gm/dL (12.0-15.0); MCH 31.3 pg (26.0-34.0); MCHC 32.1 g/dL (28.0-37.0); MCV 97.6 fL (80.0-100.0); RBC 4.18 mil/uL (4.20-5.00); WBC 10.3 thou/uL (4.0-11.0)
[2019-09-28 04:52] LABS: CALCIUM 9.4 mg/dL (8.5-10.1); CREATININE 0.9 mg/dL (0.6-1.0)
[2019-09-28 04:57] LABS: POTASSIUM 2.8 mmol/L (3.5-5.1)
[2019-09-28 08:43] VITALS: BP 143/91
--- NOTE | 2019-09-28 17:24 | NUR ---
ASSUMED CARE AT 0700. PT IS ALERT TO SELF ONLY. PT IS ABLE TO CONVERSE. PT WHILE AWAKE YELLS OUT IN A SINGING VOICE.
[2019-09-28 17:33] VITALS: BP 146/65
[2019-09-28 20:06] VITALS: BP 150/69
--- NOTE | 2019-09-29 04:32 | NUR ---
PT. CONTINUES TO CALL OUT AND IS VERY CONFUSED. ORIENTED TO SELF ONLY. DOES NOT RESPOND TO REDIRECTION. REFUSES TO BE TURNED. ASSESSMENT CHARTED. CONTINUE TO FOLLOW POC. WILL CONTINUE TO MONITOR.
[2019-09-29 06:11] LABS: CALCIUM 9.7 mg/dL (8.5-10.1); CREATININE 0.8 mg/dL (0.6-1.0); MAGNESIUM 2.2 mg/dL (1.8-2.4); POTASSIUM 3.5 mmol/L (3.5-5.1)
[2019-09-29 08:52] VITALS: BP 171/86
--- NOTE | 2019-09-29 13:17 | NUR ---
SW reviewed chart and spoke with nursing and attending physician. Pt evaluated by [facility] physician for possible re-admission to [facility] when medically stable. SW left voice message for pt's dtrLaila ([phone]) to discuss discharge. YOU is following to assist as needed with discharge planning.
[2019-09-29 14:27] VITALS: BP 146/93
[2019-09-29] MEDS ORDERED: PROTONIX40 M2 PO (19:53)
[2019-09-29] MEDS ORDERED: NORCO 10-325 T1 EACH PO (19:54)
[2019-09-29] MEDS ORDERED: CALCIUM500 MG PO (19:55)
[2019-09-29] MEDS ORDERED: HALDOL5 MG/1 ML IM (19:56)
[2019-09-29] MEDS ORDERED: LORAZEPAM 22 MG/1 ML IM (19:57)
[2019-09-29] MEDS ORDERED: LITHOBID300 MG PO (19:58)
[2019-09-29] MEDS ORDERED: PROPRANOLOL 1010 M1 PO (19:59)
[2019-09-29] MEDS ORDERED: CEPACOL SORE T1 EAC7 PO (20:01)
[2019-09-29] MEDS ORDERED: ONDANSETRON HCL4 M2 PO (20:02)
[2019-09-29] MEDS ORDERED: MILK OF MA400 MG/5 M PO (20:04)
--- NOTE | 2019-09-29 20:24 | NUR ---
PT ALERT AND ORIENTED TO SELF, VSS, NO SIGNS OF DISTRESS. PATIENT STATED HER ANXIETY WAS HIGH THROUGHOUT DAY. PATIENT YELLS OUT FOR HELP, UNABLE TO TEACH TO USE CALL LIGHT AND REDIRECT. PSYCHOLOGIST IN TO SEE PATIENT AND ADJUST MEDICATION. PATIENT DISCHARGED TO 5S, NO SIGNS OF DISTRESS, FAMILY TRAVELED TO NEW ROOM WITH PATIENT. IV REMOVED, ALL BELONGINGS WITH PATIENT AND REPORT CALLED TO UNIT.
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
== END 2019-09-29 17:52 | DRG 682 ==
LOC: 4W 16:50
PROVIDERS: Internal Medicine; ADMIT Family Medicine
DX: N17.9 Acute kidney failure, unspecified (principal); G92 Toxic encephalopathy; N39.0 Urinary tract infection, site not specified; E87.0 Hyperosmolality and hypernatremia; I95.9 Hypotension, unspecified; F31.9 Bipolar disorder, unspecified; B96.20 Unspecified Escherichia coli [E. coli] as the cause of diseases classified elsewhere; E87.6 Hypokalemia; F60.9 Personality disorder, unspecified; Z88.0 Allergy status to penicillin; Z88.1 Allergy status to other antibiotic agents; Z88.8 Allergy status to other drugs, medicaments and biological substances
CPT/HCPCS: 10047

== ENCOUNTER 2019-09-29 18:00 | Inpatient (IN) | payer OTHER, BC ==
[2019-09-29 17:30] VITALS: BP 136/81
--- NOTE | 2019-09-29 18:42 | NUR ---
1725: Admitted to room [facility] via bed from . Pt alert, oriented to name, place and time. DPOA/Sister present upon admission, DPOA gives permission for consents. Inventory sheet completed, VS done, admission assessment completed. Pt transferred to recliner and taken to DR for dinner meal. Pt observed to do verbal chanting when left sitting alone in DR, q 12min checks initiated. Dr. Holder and Dr. Coughlin notified of admission.
[2019-09-29] MEDS ORDERED: PROTONIX40 M2 PO (19:53)
[2019-09-29] MEDS ORDERED: NORCO 10-325 T1 EACH PO (19:54)
[2019-09-29] MEDS ORDERED: CALCIUM500 MG PO (19:55)
[2019-09-29] MEDS ORDERED: HALDOL5 MG/1 ML IM (19:56)
[2019-09-29 19:57] VITALS: BP 130/73
[2019-09-29] MEDS ORDERED: LORAZEPAM 22 MG/1 ML IM (19:57)
[2019-09-29] MEDS ORDERED: LITHOBID300 MG PO (19:58)
[2019-09-29] MEDS ORDERED: PROPRANOLOL 1010 M1 PO (19:59)
[2019-09-29] MEDS ORDERED: CEPACOL SORE T1 EAC7 PO (20:01)
[2019-09-29] MEDS ORDERED: ONDANSETRON HCL4 M2 PO (20:02)
[2019-09-29] MEDS ORDERED: MILK OF MA400 MG/5 M PO (20:04)
--- NOTE | 2019-09-29 21:21 | NUR ---
PT TRANSFERRED FROM [facility], WAS BEING TREATED FOR POSSIBLE UROSEPSIS, UTI, JOLANTA, AMS, HX HTN. ADMISSION COMPLETED ON MY SHIFT THROUGH RECORDS. PT WAS NOT ABLE TO STATE THE HOSPITAL, MONTH, DAY. SHE KNOWS HER NAME AND . PT DENIED SI. PT STATED SHE IS HERE FOR AN ILLNESS THAT SHE HAS HAD FOR A LONG TIME, MANIC DEPRESSION. PT SINGS ALL OF HER SENTENCES. PT HAS A BLUNTED AFFECT, GOOD EYE CONTACT. PT IS A TWO PERSON TRANSFER, FEET CROSS AND WEAK. PT HAS TREMOR IN R HAND. PT COMPLIANT WITH MEDS AND HS SNACK. PT IS PUREED WITH NECTAR LIQUIDS. PT HAS A SISTER DPOA. HX OF INCONTINENCE.
--- NOTE | 2019-09-30 06:03 | NUR ---
pt yelled and was singing out 3 times through out the night, pt was not able to be verbally redirected to stop. pt would eventually stop singing, yelling, talking to self and fall asleep. pt asked to speak versus sing and stated she was not able.
--- NOTE | 2019-09-30 07:00 | NUR ---
Assumed care of patient this am. Patient sitting in wheelchair singing sentences. Patient affect anxious. Patient compliant with medications and takes meds crushed in pudding or applesauce. Patient assessment reveals clear breath sounds, active bowel sounds, and heart tones s1 s2 heard with auscultation.
[2019-09-30 09:37] VITALS: BP 108/66
[2019-09-30 14:24] LABS: CALCIUM 10.2 mg/dL (8.5-10.1); CREATININE 1.1 mg/dL (0.6-1.0); POTASSIUM 3.2 mmol/L (3.5-5.1)
[2019-09-30 23:34] VITALS: BP 134/83
--- NOTE | 2019-10-01 06:16 | NUR ---
SLEPT 4.2 HOURS OVERNIGHT, WOKE @ 0500, GIVEN INCONTINENT CARE, URINE OUTPUT NOTED. NECTAR THICK ORANGE JUICE PROVIDED WITH SEROQUEL 50MG AND TYLENOL 650 FOR ANXIETY AND GENERAL PAIN.
[2019-10-01 09:44] VITALS: BP 94/56
--- NOTE | 2019-10-01 10:00 | NUR ---
0700 Report received from overnight shift, patient was chanting this am she ate breakfast, took medication without incidence. Patient is very anxious, still chants help me and says she is bipolar. We will contiune to observe patient for safety and falls.
[2019-10-01 13:04] VITALS: BP 119/67
[2019-10-01 20:17] VITALS: BP 135/72
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
[2019-10-02 00:05] VITALS: BP 135/72
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
--- NOTE | 2019-10-02 01:48 | NUR ---
PATIENT CONTINUALLY CALLING OUT FOR HELP. I HAVE ADDRESSED ALL HER WANTS AND NEEDS AND SHE CONTINUES TO WANT SOMEONE EVERY 5 MINUTES FOR LITTLE THINGS. SHE SAYS SHE'S HOT, THEN SHE'S COLD, SHEETS ON, SHEETS OFF, DOESN'T WANT GOWN ON, WANTS YELLOW SHIRT ONLY, WANTS GOWN AND YELLOW SHIRT ON, THIRSTY, GIVE HER DRINK, BRUSH HER TEETH, AND ON AND ON. CALLED DR CONN AND RECEIVED ORDER FOR GEODON 15MG IM NOW. THIS WAS GIVEN AND THEN STRAIGHT CATHED PATIENT FOR UA C&S IF INDICATED, ORDERED BY DR KLEIN. UA SPECIMAN TAKEN TO LAB AFTER COLLECTED BY STERILE PROCESS. PATIENT APPEARS TO BE SLEEPING AT THIS TIME. WILL CONTINUE TO MONITOR.
[2019-10-02 02:08] LABS: URINE BILIRUBIN NEGATIVE (Negative); URINE BLOOD NEGATIVE (Negative); URINE CLARITY CLEAR; URINE COLOR YELLOW; URINE GLUCOSE-RANDOM* NEGATIVE (Negative); URINE KETONES NEGATIVE (Negative); URINE NITRITE-REFLEX NEGATIVE (Negative); URINE PROTEIN (DIPSTICK) NEGATIVE (Negative); URINE UROBILINOGEN 0.2 E.U./dl (0.2-1.0)
[2019-10-02 02:12] LABS: URINE LEUKOCYTES-REFLEX 2+ (Negative)
[2019-10-02 02:41] LABS: SQUAMOUS 0-3 Few /LPF (0-3); URINE RBC 0-2 Rare /HPF (0-2); WBC CLUMPS Few (None Seen)
[2019-10-02 02:42] LABS: BACTERIA-REFLEX 1-9 Few /HPF (None Seen); CASTS None Seen /LPF (None Seen); CRYSTALS None Seen /LPF (None Seen); MUCUS 0-3 Light strn/LPF (None Seen)
--- NOTE | 2019-10-02 04:14 | NUR ---
PATIENT CALLING OUT FOR HELP AGAIN. SHE TELLS SALES SPECIALIST THAT SHE CAN'T SLEEP AND THAT IS NOT GOOD." WHEN I GO IN TO CHECK HER BECAUSE SHE CONTINUES CALLING OUT, SHE HAS KICKED OFF ALL OF HER BLANKETS. I START TO PUT THEM ON HER AND SHE SCREAMS, "GET THEM OFF! GET THEM OFF! THEY'RE HURTING ME." I REMOVED THE COVERS. SHE STATES SHE IS IN BAD SHAPE BECAUSE SHE CAN'T SLEEP. THEN SHE WANTS A DRINK. I GIVE HER HER PRN SEROQUEL 50MG WITH WATER AND SHE STOPS ME AND SAYS SHE WANTS JUICE. I GIVE HER SOME APPLEJUICE AND SHE TAKES A SIP AND THEN SAYS WAIT A MINUTE, DON'T GIVE ME ANYMORE TILL I FINISH "PEEING". SHE THEN ASKS IF I COULD RUB HER FEET AND MAKE HER FEET COLD. PATIENT URINATES IN BED AND I ASK FOR SALES SPECIALIST'S TO GO HELP HER AND I SAT THE APPLEJUICE BY BEDSIDE. INCONTINENT CARE BEING DONE NOW. WILL CONTINUE TO MONITOR AND SEE IF SHE WILL GO BACK TO SLEEP.
--- NOTE | 2019-10-02 07:00 | NUR ---
Assumed care of patient this am. Patient sitting in recliner talking/singing in monosyllibic phrases. Patient is very impatient. Patient takes medications crushed in pudding or ice cream. Patient affect flat. Patient assessment reveals clear breath sounds, active bowel sounds, and s1 s2 heart tones present. Patient has a mechicanically ground diet and thickened liquids. Patient states that she had a large bowel movement last night. Vital signs stable.
--- NOTE | 2019-10-02 08:12 | NUR ---
GUTIERREZ spoke at length with Kaye Richardson regarding pt's placement options. Gutierrez also is working on the DA 124 level II screen for this pt.
[2019-10-02 09:28] VITALS: BP 123/70
[2019-10-02 20:24] VITALS: BP 133/75
--- NOTE | 2019-10-02 21:46 | NUR ---
PT CRAWLING ON FLOOR DURING SHIFT CHANGE. PT ASSISTED BACK TO JERMAINE CHAIR. PT HAS BEEN YELLING OUT AND AT TIMES SINGING HER WORDS. PT TOLD NURSE SHE SMELLED AND WAS FAT, BUT TOLD ANOTHER NURSE THEY WERE GONCALVES AND KIND AND ASSISTED OTHERS TO EAT. PT CRAWLED OUT OF JERMAINE CHAIR IN HALLWAY, LOWERED SELF TO FLOOR AND LAYED ON FLOOR STATING IT WAS BECAUSE IT WAS COLD AND FELT GOOD. PT ASSISTED BACK TO BED. PT PROVIDED FLUIDS. PT COMPLIANT WITH MEDS AND HS SNACK. PT DID GET OUT OF BED AND LOWERED HERSELF TO FLOOR AND CRAWLED AND LAYED ON FLOOR. PT LAYED ON FLOOR FOR APPROXIMATELY 20 MINUTES WITH PILLOW AND BLANKET, PT THEN RETURNED TO BED. LAP BELT, CHAIR, AND BED ALARMS ON. PT STATED SHE HAS BIPOLAR DISORDER AND IF SHE DOESN'T WANT TO BE ALONE AND SHE WANTS SOMEONE TO TALK WITH HER. PT HAD BEEN IN DAY ROOM WITH PEERS AND STAFF AT BEGINNING OF SHIFT, BUT REQUESTED TO GO TO HER ROOM, SHE DID NOT WANT TO BE WITH OTHERS. STRENGHT WITH STANDING AND AMBULATION IN ALL EXTREMITIES BUT UNSTEADY GAIT, WHEN ASSISTED BY STAFF.
--- NOTE | 2019-10-03 00:49 | NUR ---
PT HAD BEEN SLEEPING ON THE FLOOR PT CRAWLED INTO THE HALLWAY. PT ASSISTED UP, ASSISTED TO RESTROOM AND PLACED IN JERMAINE LOUNGE AND TAKEN TO DAY ROOM. AT THIS TIME PT IS WATCHING TV QUIETLY. CHAIR ALARM AND BELT INTACT.
[2019-10-03 09:54] VITALS: BP 130/91
--- NOTE | 2019-10-03 10:25 | NUR ---
0700 Report received 0700 from overnight shift, patient was chanting this morning; we had to remove her from the day room due to upsetting other patients. Patient was redirected to use her words and stop chanting. Patient was incontinent of bowel and bladder. Patient ate breakfast took medication without incidence. Will continue to monitor patient for safety.
[2019-10-03 12:20] LABS: CALCIUM 10.1 mg/dL (8.5-10.1); CREATININE 0.9 mg/dL (0.6-1.0); PHOSPHORUS 3.5 mg/dL (2.5-4.9)
--- NOTE | 2019-10-03 12:30 | EKG ---
[address] [address] ELECTROCARDIOGRAM REPORT Name: NIRAV CAGEVIDYA Butts Room #: [facility] ADM IN M.R.#: [id number] Admission: 09/29/19 Attend Phys: Nahun Coughlin DO Discharge: Date of : 50 Report #: [id number] THIS REPORT FOR: //name// [facility] Test Date: 2019-10-03 Test Time: 09:05:55 Pat Name: SEEMA CAGE Department: Room: [facility] Gender: F Counter Pocket Trimmer: RT : 1950 Requested By: Nahun Coughlin Order Number: [id number] MD: Abhijeet Donohue Measurements Intervals [place] Rate: 104 P: 70 MI: 129 QRS: 263 QRSD: 81 T: 55 QT: 353 QTc: 465 Interpretive Statements Sinus tachycardia Nonspecific T-wave abnormalities Compared to ECG 09/18/2019 11:35:41 Posterior QRS axis now present Sinus rhythm no longer present Electronically Signed On 10-03-2019 12:30:02 GMAT TUTOR by Abhijeet Donohue [email or web address] <ELECTRONICALLY SIGNED> By: Abhijeet Donohue MD 10/03/19 1230 09 4 MD SEDRICK Dubose
[2019-10-03 19:25] VITALS: BP 111/62
[2019-10-03 22:51] VITALS: BP 130/91
--- NOTE | 2019-10-04 02:48 | NUR ---
PT OUT IN DAY AREA, PERIODICALLY ENGAGING IN GREGORIAN CHANTS. MONOTONOUS HOWLS OF HELP ME. NEEDS CONSTANT REASSURANCE THAT SHE IS SAFE AND SOUND. AFTER SNACKS, PT TOOK HS MEDS WITH PUDDING. NOT WANTIN TO GO TO BED, RATHER SIT IN DAY AREA. PUT TO BED BUT CRAWLED OUT AND WAS FOUND CRAWLING ALONG TO FLOOR. PLACED IN RECLINER AND ESCORTED TO DAYROOM. MEDICATED FOR RESTLESSNESS AND HAS BEEN ONLY PERIODICALLY CALLING OUT FOR HELP. HAS SLEPT INTERMITTANTLY.
--- NOTE | 2019-10-04 07:00 | NUR ---
Assumed care of patient this am. Patient sleeping in her bed. Patient arouses easily. Patient states that she is scared and doesnt know what to do. Patient moved from bed to reclining chair and taken to [facility]. Patient affect tense. Patient speaking monsyllibic in chant style. Patient assessment reveals clear breath sounds, active bowel sounds, and s1 s2 present. Patient denies pain. Patient takes medications crushed in pudding or applesauce. Patient requests to go to her room and was encouraged to participate in the activity area.
[2019-10-04 08:22] VITALS: BP 135/81
[2019-10-04 19:30] VITALS: BP 137/80
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
--- NOTE | 2019-10-04 22:24 | NUR ---
PT YELLING OUT FOR JERMAINE CHAIR TO BE RECLINED, BUT IT IS. PT YELLED OUT THAT SHE WAS COLD, OBSERVED PT SIT UPRIGHT, PULL UP BLANKET AND LAY BACK TO RECLINING POSITION.
--- NOTE | 2019-10-05 01:06 | NUR ---
pt yelling loudly, calling out repetitively for help, water after already given, calling herself crazy, calling staff stupid. keeps asking for mary. talking about neighbors using profanity, calling her bitch. prn provided. pt not redirectable regarding behaviors even when explained how peers are asleep.
--- NOTE | 2019-10-05 02:16 | NUR ---
PT AWAKENS FROM SLEEPING YELLING LOUDLY HELP I NEED MY LITHIUM I DONT THINK I GOT IT TODAY, REPETITIVELY, WHEN STAFF DOES NOT ENGAGE PT DOES QUIET.
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
--- NOTE | 2019-10-05 04:11 | NUR ---
PT WAS SINGING SOFTLY AND NICELY, AMAZING DIANA, ONWARD JEW SOLDIER AND SILENT NIGHT. WILL PASS ON FOR SW TO POSSIBLY LEAVE A MUSIC PLAYER TO ASSIST WITH DISTRACTING PT FROM YELLING AND SCREAMING.
--- NOTE | 2019-10-05 05:40 | NUR ---
PT DID CRAWL OUT OF JERMAINE CHAIR AND LAY ON FLOOR, SHE RESTED BRIEFLY, THEN REQUESTED TO RETURN TO CHAIR.
[2019-10-05 07:48] VITALS: BP 118/77
[2019-10-05 09:54] VITALS: BP 118/77
--- NOTE | 2019-10-05 10:14 | NUR ---
Date of Admission: 09/29/19 Date of Activity Therapy Assessment: 10/02/2019 Activity Goal: One RT group per day Initial Goal:Patient will participate in one recreation therapy group per day to manage anxiety and impulse control. Weekly progress towards goal: Did not achieve Group participation level: minimal Behaviors observed:Pt is almost constantly yelling out, often saying "help". Pt whines loudly until she feels her needs are met. Pt has been removed from several groups for being disruptive. Pt is very difficult to redirect and does not do well with a lot of people around. Her behaviors appear to increase with a group. Pt requires almost constant 1:1 attention. Pt would benefit from 1:1 attention, rather than group settings. Plan: To offer pt 1:1 activity.
--- NOTE | 2019-10-05 10:27 | NUR ---
0702 Report received from overnight shift, patient this morning chanting, yelling help me. Patient ate breakfast took medication without incidence. Patient was encourage to use coping skills and not yell due to iritating other patients. We will use the quiet room if patient is chanting or yelling. We will continue to monitor patient for safety.
--- NOTE | 2019-10-06 05:02 | NUR ---
PATIENT IS ALERT AND ORINETED 2-3X, SHE HAS BEEN CRAWLING AROUND HER ROOM AND THROUGHOUT THE UNIT. REPEATEDLY SHE STATES 'IM GOING TO , MY IS GOING TO KILL ME' THIS NURSE ATTEMPTED TO REASSURE PATIENT THAT SHE IS SAFE. SHE STATED 'HES A GENIUS HE CAN GET INTO ANYTHING.' SHE APPEARS WITH A TIRE, FLAT AFFECT. SHE HAS BEEN DISROBING ON THE UNIT REQUIRING MULTIPLE REDIRECTIONS. ALSO SHE HAS BEEN OBSERVED SCREAMING FOR STAFF WHEN THEY WALK BY HER ROOM OR WHEN SHES IN THE DAY ROOM. SHE DID NOT REPORT SI HI SH OR HALLUCINATIONS, BUT DOES EXHIBIT BIZAARE BX. SHE DID NOT REPORT ANY MEDICAL CONCERNS NOR APPEAR TO BE IN DISTRESS. NURSING WILL MAINTAIN ALL PRECAUTIONS TO ENSURE SAFETY AT ALL TIMES.
--- NOTE | 2019-10-06 07:00 | NUR ---
Assumed care of patient this am. Patient agitated and needy. Patient took her top off and walked around the bradley with her breasts exposed. Patient sat herself on the floor in the bradley and wanted help getting back up. Patients affect frightened. Patient difficult to redirect. Patient takes medications crushed in pudding or applesauce. Patient ambulates when she is seeking attention. Patients assessment shows clear breath sounds, active bowel sounds, and s1 s2 present.
[2019-10-06 07:30] VITALS: BP 119/79
[2019-10-06 09:06] VITALS: BP 119/79
--- NOTE | 2019-10-06 16:01 | NUR ---
GUTIERREZ and Dr campos spoke with pt's dght regaridng her behaviors na dd/c plans. It is recomneded that she have a 1:1 chair lift operator PD for her waking hours. family would like another meeting on 10/09 at 1pm. Gutierrez also called Kaye Richardson and left a VM. Kaye later called back and reported that she visited this pt on TR last week and agrees that she needs 1:1. They are all looking for LTC for this pt. [facility] has already agreed to take her back.
--- NOTE | 2019-10-06 18:18 | NUR ---
Patient was very disruptive and displayed junk behaviors throughout the day. On several occasions patient removed her shirt and walked the halls. Patient was very difficult to redirect. On two occasions patient was escorted to the quiet room to calm down and compose her behavior.
[2019-10-07 00:10] VITALS: BP 119/79
--- NOTE | 2019-10-07 01:05 | NUR ---
PATIENT WALKED OUT OF HER ROOM INTO DINING ROOM AT [facility] AND LAID ON COUCH. THEN SHE SAID SHE HAD TO GO TO THE BATHROOM. CLOTH SHRINKING MACHINE OPERATOR HELPER TOOK HER TO BATHROOM AND SHE STARTED YELLING OUT THAT SHE CAN'T PEE. SHE KEPT GETTING UP FROM THE TOILET AND SAYING SHE NEEDED TO FIND ANOTHER CHAIR. SHE STOOD UP FROM TOILET AND SAID SHE WANTED TO STAND AND THEN SHE HELD ON TO HAND RAIL AND LOWERED HERSELF TO THE BATHROOM FLOOR AND LAID DOWN. THEN SHE STARTED SCREAMING, "dON'T LET LET FALL ON THE FLOOR." CLOTH SHRINKING MACHINE OPERATOR HELPER AND ME ASSISTED GETTING HER OFF THE FLOOR. SHE THEN STARTED SCREAMING THAT SHE WANTED A DRINK, TO GO TO BED , TO SIT ON THE TOILET, WANTED SOME JUICE. ALL THESE THINGS WERE GIVEN TO HER AND SHE SCREAMED THAT SHE DIDN'T WANT THEM. SHE WAS TOLD THAT IF SHE COULDN'T STAY CALM AND QUIET THAT WE WOULD TAKE HER TO THE QUIET ROOM. SHE STARTED SCREAMING AT THE TOP OF HER LUNGS, "DON'T TAKE ME THERE! I DON'T WANT TO GO THERE!" CALLED DR CONN AND RECEIVED ORDER FOR GEODON 20MG IM. PATIENT CONTINUED DEMAND ATTENTION AND WET HER BED. WE CHANGED THE BEDDING AND GOT PATIENT COMFORTABLE AGAIN. CLOTH SHRINKING MACHINE OPERATOR HELPER STAYED WITH HER TILL SHE FELL ASLEEP. BED ALARM ON AND BED IN LOW POSITION.
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
[2019-10-07 07:09] LABS: GLOBULIN TOTAL 2.8 g/dL (2.2-3.9); M-SPIKE Not Observed g/dL (Not Observed)
[2019-10-07 09:02] VITALS: BP 116/82
--- NOTE | 2019-10-07 10:45 | NUR ---
YOU spoke with Kaye Richardson and she will be setting up PD with a d/c to [facility] in AM. YOU sent updates to Kaye [phone].
[2019-10-07 11:03] VITALS: BP 116/82
--- NOTE | 2019-10-07 11:17 | NUR ---
0700 Report received from overnight shift, patient is on a 1:1 WA and asleep in quiet room. Patient was removed from quiet room for hygiene and to eat breakfast. Patient sat in day room for about an hour,then was falling asleep. I took her to her room to take a nap. I asked Dr Coughlin if we can take the patient off 1:1. Patient enjoys having her own staff and I talked with Dr Coughlin about patient requesting a 1:1. Hetold me the patient is at her baseline and he would think about changing her status. We will continue the patient for safety.
--- NOTE | 2019-10-07 12:20 | NUR ---
PATIENT CONTINUE ON 1:1 LEVEL OF OBSERVATION FOR UNABLE TO REDIRECT. PATIENT HAS BEEN CALM, COOPERATIVE WITH CARE. TOOK ALL MORNING MEDICATION WHOLE WITHOUT DIFFICULTY. PATIENT IS EATING 100% MEALS. PATIENT DENIES SUCIDAL/HOMICIDAL IDEATION. AFFECT IS BRIGHT, PATIENT INTERACTING WELL WITH STAFF, SEEM FORGETFUL/CONFUSED AT TIMES. PATIENT AMBULATES WITH ASSIST OF ROLLER WALKER, GAIT SLIGHTLY UNSTEADY. MOOD IS EUTHYMIC, PATIENT DENIES SUICIDAL/HOMICIDAL IDEATION SHE RATED BOTH DEPRESSION/ANXIETY 3/10. PATIENT CURRENTLY IN BED TAKING A NAP, WILL CONTINUE TO REDIRECT, AND MONITOR FOR SAFETY.
--- NOTE | 2019-10-07 15:37 | NUR ---
Gutierrez spoke with Jesusita and she would like to have the referral sent to [facility] as their first choice.
--- NOTE | 2019-10-07 16:25 | NUR ---
GUTIERREZ got a vm that [facility] will not take this pt. Gutierrez called and spoke with Kaye Richardson and reported this. GUTIERREZ called and left a VM for admissions at [facility] for possible placement.
[2019-10-07 20:13] VITALS: BP 122/69
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
[2019-10-08 11:39] VITALS: BP 120/72
[2019-10-08 12:16] VITALS: BP 120/72
--- NOTE | 2019-10-08 14:29 | NUR ---
SW sent new referrals to [facility], [facility], [facility], and [facility] per family request.
--- NOTE | 2019-10-08 16:37 | NUR ---
THE PATIENT HAS BEEN ON A 1:1 MOST OF THE MORNING. SHE HAS BEEN IN THE QUIET ROOM TODAY DUE TO THE LOUD CHANTING AND DISTURBANCE TO THE OTHER PATIENTS. SHE HAS HAD TWO VISITORS TODAY. SHE NEEDS ASSIST WITH TOILETING AND ADL'S. THE PATIENT AMBULATES WITH A WALKER BUT IS UNSTEADY. THE PATIENT IS POOR IMPULSIVE AND NEEDY. SHE HAS BEEN RESTLESS WHILE AWAKE AND IRRITABLE. CONTINUE TO MONITOR.
[2019-10-08 19:44] VITALS: BP 149/70
--- NOTE | 2019-10-09 04:43 | NUR ---
1909- Report received from day shift nurse and care assumed. She was chanting this evening, said she hadn't eaten in a week and wanted an HS snack with juice. She c.o. headache and acid reflux and was given Tylenol 650 mg. po and Maalox, with relief and no further c.o. She laid on the floor at times even though she was encouraged to not do so. She was hyperverbal talking about past events that happened to her, about praying to God, saying she wasn't going to because she was eating delio crackers. She had a flat and sad affect, anxious and very restless, and chanted repeating her needs/requests even though staff was attending to her. At 2121 she was continuing very restless so was given Seroquel 50 mg. po and it was later effective. She was more directable and slept soundly later, was incontinent, then returned to sleeping soundly.
[2019-10-09 09:01] VITALS: BP 142/85
[2019-10-09 09:11] VITALS: BP 142/85
--- NOTE | 2019-10-09 09:31 | NUR ---
0700 Report received from overnight shift, this morning patient was yelling putting herself on the floor. I tried the quiet room patient did not stay in room. She is loud and annoying to other patients, we have been trying other distractions to help patient. We will continue to monitor patient for safety and use distractions for unruly behaviors.
--- NOTE | 2019-10-09 11:17 | NUR ---
Nutrition: Pt assessed due to LOS. Admit: major neuro disorder. Pt currently on a regular, pureed diet, with nectar thick liquids. Eating quite well actually, eating 80-100% of all meals yesterday. Over the last 5 days, pt has only refused 2 meals, averaging close to 75% of remaining meals overall. Pt not appropriate for interview this date; chanting to self, laying on floor. Given requirements for thickened liquids, limited interventions available, but will add Magic Cup to nightly dinner for dessert for increased kcals/protein. Last documented BM nearly 1 wk ago (10/02), but continues on scheduled bowel regimen with senna/docusate sodium BID. Low nutrition risk w/ overall high meal average.
--- NOTE | 2019-10-09 22:53 | NUR ---
PT CRAWLING ON FLOOR AND YELLING OUT UPON ARRIVAL TO SHIFT. PT RESTLESS AND WANDERING AND AMBULATING IN DAY ROOM, SITTING DOWN IN CHAIRS AND LAYING ON COUCH. PT SINGING SENTENCES OR SILENT NIGHT. PT TOLD NURSE SHE WAS UGLY AND THAT NO ONE LIKES HER, AND THAT ANOTHER STAFF MEMBER IS LEAVING, THEN SHE SAID THAT THEY SHOULD HANG OUT AND SHOP. PT REDIRECTED TO JERMAINE CHAIR AND TO LOWER VOICE, RELATED TO DISRUPTING DAY ROOM. PT TAKEN TO HER ROOM FOR ONE ON ONE AND TO DECREASE STIMULI. DR CONN CONTACTED REGARDING BEHAVIORS AND FOR PRN MEDICATION. HALDOL AND ATIVAN PROVIDED, PT HAD LESS YELLING OUTBURSTS AND WAS ABLE TO REMAIN SEATED IN APPROXIMATELY 20 MINUTES. PT ASSISTED TO BED AND PT HAS BEEN SLEEPING. L GREAT TOE ABRASION REMAINS. PT WAS COMPLIANT WITH IM AND PO MEDS.
--- NOTE | 2019-10-10 01:40 | NUR ---
pt awakened after incontinence episode. pt yelling and screaming, talking to herself, talking about her and his business, how she was the black sheep of the family. pt restless and wandering in room, bradley and day room. pt not following verbal redirection to sit in chair and talk with staff or watch tv. continuity writer contacted re continued behavior, how previous prn had been effective. new ordere obtained for prn.
--- NOTE | 2019-10-10 12:49 | NUR ---
YOU contacted Kaye to follow-up on if she had any more leads for pt's placement. No answer. Lft msg. Sw team will continue to follow pt during her stay.
--- NOTE | 2019-10-10 13:26 | NUR ---
YOU received a call from Kaye. She asked if SW team had sent referrals to where she asked. YOU explained that they had. She said [facility] and [facility] are reporting that they have yet to receive them and it is unusual for them to not call her. She asked SW to send another referral to [facility]. YOU told her she would. She then explained that it will be difficult to find placement for pt due to the IMs she has been receiving. YOU explained that due to pt's behavior, this has been the only method that appears to work sometimes with pt. Other methods such as giving pt a 1:1, talking with her, and redirection pt does not appear to receive well. She said pt may end up in a nursing facility that may not give IM's. YOU agreed and explained the team will take her lead on where to send referrals, however, at this time she cannot convince the psych doctor to not order IM's for pt due to the way she comprimises her safety with her behaviors. SW team will continue to follow pt during her stay.
--- NOTE | 2019-10-10 16:20 | EKG ---
[place] [address] [facility] [place] [employer] [address] ELECTROCARDIOGRAM REPORT Name: SEEMA CAGE Benjamín Room #: [facility] ADM IN M.R.#: [id number] Admission: 09/29/19 Attend Phys: Nahun Coughlin DO Discharge: Date of : 50 Report #: [id number] THIS REPORT FOR: //name// [facility] Test Date: 2019-10-10 Test Time: 12:06:48 Pat Name: SEEMA CAGE Department: Room: [facility] Gender: F [place] Sewer: Juarez HAMMOND : 1950 Requested By: Nahun Coughlin Order Number: [id number] MD: Morris Fry Measurements Intervals [place] Rate: 76 P: 53 UT: 138 QRS: -28 QRSD: 86 T: 57 QT: 394 QTc: 444 Interpretive Statements Sinus rhythm Borderline left axis deviation Compared to ECG 10/03/2019 09:05:55 Sinus tachycardia no longer present Electronically Signed On 10-10-2019 16:20:04 PACKAGING MACHINE SUPPLIES DISTRIBUTOR by Morris Fry [email or web address] <ELECTRONICALLY SIGNED> By: Morris Fry MD, [facility] 10/10/19 1620 120 05 Morris Fry MD, [facility] /EPI
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
[2019-10-10 20:32] VITALS: BP 115/67
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
[2019-10-11 09:21] VITALS: BP 128/69
--- NOTE | 2019-10-11 12:28 | NUR ---
PATIENT CONTINUE ON 1:1 FOR SAFETY. SHE HAS BEEN UP AND OUT ON THE UNIT INTERMITTENTLY, RAMBLING, RESTLESS, ANXIOUS, LIKES TO LAY, AND CRAWL ON THE FLOOR, PATIENT REQUIRES CONSTANT REDIRECTION. PATIENT TOOK ALL MEDICATION WHOLE IN THICKEN LIQUID. APPETITE IS GOOD, PATIENT EATS 100% OF MEALS, DRINKING FLUID WELL. PATIENT DENIES SUICIDAL/HOMICIDAL IDEATION. SHE DENIES DEPRESSION, " I AM NOT DEPRESSED, I JUST WANT TO SEE MY CHILDREN". DRESSING TO RIGHT GREAT TOE CHANGED, NO DRAINAGE NOTED N OLD DRESSING. PATIENT CURRENTLY IN HER ROOM RAMBLING, AND MAKING TANGENTIAL BIZZARRE STATEMENTS. PATIENT DIFFICULT TO REDIRECT AT THIS TIME, PRN SEROQUEL GIVEN, WILL MONITOR EFECTIVENESS, AND MONITOR FOR SAFETY. TO REDIRECT, AND MONITOR FOR SAFETY.
[2019-10-11 20:09] VITALS: BP 147/69
--- NOTE | 2019-10-12 00:38 | NUR ---
191-Report received from day shift and care assumed. She was laying on the floor in her room and chanting and rambling, anxious and nervous, and shaking. VS p=116, io=202/69, T=37.1 C, oxy. 95% room air, R=18. When she went to the day room with the 1 on 1 sitter she chanted louder. She c.o. acid reflux and overall discomfort and was given Maalox and Tylenol 650 mg. She voiced paranoia when talking saying towards staff "you murdered my " and with other staff "stay with me, I'm scared". She was non-redirectable, continued restless, anxious, trembling, irritable, paranoia noted. called at 1934 and ordered Haldol 7.5 mg. IM and Ativan 1.5 mg IM x 1 now and to not give the po Haldol 7 mg. HS dose, and also to start Buspar 5 mg. TID, first dose now. She remained anxious for awhile longer, chanting, voicing suspicions and recalling the past events about her at home and falling for instance, but then fell asleep, which she did so sleep for approximately 2 hours. She awakened and began being anxious chanting, singing, restless, and and Seroquel 50 mg. po prn was given at 2350, which was ineffective, she voiced "you killed my " rambling,chanting, restless still at 0100. e
[2019-10-12 08:56] VITALS: BP 120/78
--- NOTE | 2019-10-12 10:12 | NUR ---
SOMULENT THIS AM-DID WAKE UP FOR BREAKFAST AND AM MEDS AND SAT IN DAYROOM IN RECLINER DOZING FOR BRIEF PERIODS-WHEN AWAKE IS TALKING CONSTANTLY-CONVERSATION [id number] DIRECTED-SPEAKS IN HIGH PITCHED CHILD-LIKE VOICE AND HAS MULTIPLE AND SPECIFIC REQUESTS (IE FLUFF MY PILLOW-PUT MY FEET UP HIGHER"
--- NOTE | 2019-10-12 12:17 | NUR ---
noted increase in restlessness/agitation at approx 1030-getting up out of chair repeatdly-increase in crying-yelling out-toileted x2 and ambulated in hallways in attempt to decrease agitaion-no response to above interventions-does not respond to support/reassurance from this rn or 1;1 staff member-attempted to lie down on floor in hallway and in dayroom in middle of visiting hours-ambualted to room with assist staff x2-dressing change completed to toe and seroquel 50mg po prn-positioned in bed for comfort-conversation rambling- ?delusional speaking about "a big flood" but denies seeing or hearing things replying to this question in regular tone of voice "no i am not experiencing auditory,visual or command hallucintations" then resumes chanting/repetative verbalization.
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
[2019-10-12 20:00] VITALS: BP 139/80
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
[2019-10-13 07:48] VITALS: BP 142/69
[2019-10-13 14:55] LABS: URINE BILIRUBIN NEGATIVE (Negative); URINE BLOOD NEGATIVE (Negative); URINE CLARITY CLEAR; URINE COLOR YELLOW; URINE GLUCOSE-RANDOM* NEGATIVE (Negative); URINE KETONES NEGATIVE (Negative); URINE LEUKOCYTES-REFLEX NEGATIVE (Negative); URINE NITRITE-REFLEX NEGATIVE (Negative); URINE PROTEIN (DIPSTICK) NEGATIVE (Negative); URINE SPECIFIC GRAVITY <= 1.005 (1.005-1.035); URINE UROBILINOGEN 0.2 E.U./dl (0.2-1.0)
--- NOTE | 2019-10-13 15:42 | NUR ---
PT. HAS COME OUT OF HER ROOM TWO TIMES NAKED FROM THE WAISTE DOWN. SHE WAS INFORMED IF SHE CONTINUED TO COME OUT NUDE, SHE WOULD HAVE TO TAKE A TIME OUT IN THE QUIET ROOM. AT 1400 SHE CAME OUT NUDE FROM THE WAIST DOWN. SHE WAS ESCORTED TO THE QUIET ROOM. SHE WAS IN THERE FOR ABOUT 1 HOUR. SHE CONTINUES TO TALK IN A "CHANTING VOICE". SHE EASILY BECOMES UPSET WHEN HER THINKING IS CHALLENGED. SHE OFTEN WILL TALK IN A LOUD NORMAL TONE OF VOICE AT THAT POINT, THEN QUICKLY RETURN TO THE "CHANTING VOICE".
--- NOTE | 2019-10-13 16:04 | NUR ---
Very anxious and confused, restless. Up and out of bed to toilet, chair, hallway approximately every 3-5 min this AM. Sits/lays on floor spontaneously and then wants to be helped up. Able to pull self up without difficulty with direction. Continuous high pitched sing song voice. Longest period of sleep was approximately 5 min. Ambulates in hallway/dining room without assistance. Distrupting peers by taking food from them. Removing clothes frequently. No change in behavior with scheduled meds or prn x1. Taking meds without difficulty. Very thirsty but no voids this AM. Straight cath done without difficulty with approximately 700cc obtained. UA/cx sent, Dr. Coughlin aware of results. Orientated to self only. States she wants to but is "too chicken to do anything". Denies HI. Breath sounds clear t/o, bilaterally equal. Regular HR auscultated. Color pink with brisk capillary refill and palpable peripheral pulses. Active bowel sounds over soft, flat abdomen. Bandaid on R great toe removed, 1.5 circular abrasion to top of toe cleaned with NS and dressed with foam bandage and gauze. Small 1cm circular abrasion to R elbow. Multiple bruises on forearms.
--- NOTE | 2019-10-13 19:56 | NUR ---
PT EXTREMELY RESTLESS AND INVASIVE. WANDERING INTO OTHER PTS. IMPOSSIBLE TO REDIRECT. RAMBLING INCOHERANT SPEECH. MD ORDERED ATIVAN 1.5 AND HALDOL 5MG IM NOW AND HOLD SCHEDULED HS HALDOL. ESCORTED TO BED AND MED ADMINISTERED.
[2019-10-13 20:21] VITALS: BP 130/89
[2019-10-13 23:29] VITALS: BP 130/89
--- NOTE | 2019-10-14 03:32 | NUR ---
PT REMAINS RESTLESS AND DIFFICULT TO REDIRECT. PERIODICALLY STRIPPING OFF CLOTHING AND WANDERING OUT OF ROOM. CONTINUES TO PERIODICALLY SIT ON FLOOR AND SQUIRM AROUND. MEDICATED WITH HALDOL 5MG AND ATIVAN 1.5 MG IM AT 1930. SCHEDULED HS MEDS HELD. REMAINED RESTLESS FOR A PERIOD AND WAS FINALLY ESCORTED TO ROOM WHERE SHE WAS TOILETED WITH GOOD RESULTS AND PLACED IN BED. REMAINED IN BED FOR A COUPLE OF HOURS, AND RETURNED TO DAYROOM, WHERE SHE WAS PUT IN A RECLINER, WHERE SHE FINALLY SETTLED. ASLEEP AT THIS TIME.
--- NOTE | 2019-10-14 05:15 | NUR ---
PT INCONTINENT X2 DURING THE NIGHT, BUT ONLY SMALL AMOUNTS. BLADDER SCANNED THIS AM. 750ML SCANNED. PT TOILETED BUT ONLY WENT MODEST AMOUNT. BLADDER SCANNED A SECOND TIME AND 500 ML SCANNED. PT STRAIGHT CATHED WITH 700 ML RECOVERED. PT UP IN DAY ROOM.REMAINS RESTLESS.
--- NOTE | 2019-10-14 09:45 | NUR ---
PT AMBULATING THE UNIT. TAKES CLOTHES OFF BUT DOES PUT ON BYSELF WHEN ASKED. PT TOOK AM MEDS WITH SOME EFFORT FROM STAFF THIS MORNING ATE 25-50 % OF BREAKFAST. PT CONSTANTLY MOVING. PT URINATED XS 2 THIS AM.
[2019-10-14 09:56] VITALS: BP 140/64
--- NOTE | 2019-10-14 10:07 | NUR ---
PT SLEEPING IN HER BED AT THIS TIME.
--- NOTE | 2019-10-14 12:57 | NUR ---
YOU spoke with Kaye Richardson and she stated that [facility] is trying to [facility] bed available for her and that family is considering home with 24 hour day care supervisor in the meantime. Will follow up as needed.
--- NOTE | 2019-10-14 13:45 | NUR ---
PT UP WALKING HAS WALKER AT THIS TIME. SITTING IN DINING ROOM. PT IS MORE CALM AND IS KEEPING CLOTHES ON. PT HAD MED BM AND IS URINATING. PT TO HAVE VIDEO SWALLOW AND POSSIBLE DIET CHANGE.
--- NOTE | 2019-10-14 17:25 | NUR ---
PT IN DINING ROOM ATE 100% OF DINNER. TOOK PM MED. PT HAD BM XS 2 TODAY HAS URINATED XS 4 BLADDER SCANNED PATIENT HAD 89 ML. PT HAS ORDER FOR DRSG AND TX TO RIGHT GREAT TOE BUT PATIENT WILL NOT KEEP DRESSING ON.
[2019-10-14 20:32] VITALS: BP 147/73
--- NOTE | 2019-10-15 02:11 | NUR ---
ASSUMED CARE OF PATIENT AT 1915, PATIENT CONTINUES TO EXHIBIT DELUSIONAL BEHAVIORS AT TIMES, MAKING STATEMENTS THAT ARE NON SENSICAL. REDIRECTING THE PATIENT IS CHALLENGING. SHE DOES EXHIBIT AT TIMES BX THAT ARE NON ATTENTION SEEKING IN MANNER. IGNORING PATIENTS BX RESULTS IN A POSITIVE OUTCOME FOR HER BX. SHE APPEARS WITH A TENSE AFFECT, DENIES SI HI, BUT DOES REPORT HALLUCINATIONS BUT IS UNABLE TO VERBALIZE WHAT THEY CONSIST OF. SHE DID NOT REPORT MEDICAL CONCERNS WITH NO S/S OF DISTRESS. NURSING WILL MAINTAIN ALL PRECAUTIONS TO ENSURE SAFETY AT ALL TIMES.
[2019-10-15 08:00] VITALS: BP 165/74
--- NOTE | 2019-10-15 08:00 | NUR ---
PT AWAKE THIS AM IN DINNING ROOM. PT HANDS ARE SHAKING. PT CRYING OUT IN MONOTONE VOICE. PT SAYING HELP ME. PT WALKING WITH STEADY GAIT. PT LAYS OF FLOOR ON OWN AND WANTING HELP TO GETTING UP. PT ALS STRIPS CLOTHES AND ENTERS DINNING ROOM. PT HAS BRIEF ON FOR INCON. PT KNOWS WHEN SHE IS VOIDING OR HAVING A BM.
--- NOTE | 2019-10-15 11:19 | NUR ---
Nutrition followup: pt remains inappropriate for interview. Lying on floor, changing to self, singing at time of visit. Discussion of pt at team meeting. Per ST, diet will upgrade to [facility] soft with thin liquids. Pt with more behavioral related issues than swallowing. Was pouring liquids on tray today. Usual intake per documentation is good, > 75% most meals. Last weight 120#, up 3# from admit. Pt also magic cup at dinner which she frequently takes 100% of per documentation. Right toe abrasions noted. No BM doc since 10/02. On daily stool regimen. Low nutrition risk.
--- NOTE | 2019-10-15 11:47 | NUR ---
ADM THORAZINE 50MG IM PER DR. ROMERO. PT LYING ON FLOOR IN ROOM.
--- NOTE | 2019-10-15 13:27 | NUR ---
Pt is almost constantly yelling out, laying down on the floor, or disrobing while whining in distress. These behaviors are attention seeking and very difficult to redirect. Pt has been removed from several groups for being disruptive or inappropriate.
--- NOTE | 2019-10-15 15:24 | NUR ---
YOU spoke with Kaye Richardson and reported that [facility] and [facility] denied her admission. Kaye will reach out to pt's dght and [facility] about her pending status there. Home with 24 hr care giving is no longer an option.
--- NOTE | 2019-10-15 15:30 | NUR ---
PT LYING ON FLOOR IN DINNING ROOM AND STATED SHE HAD A BM IN DIAPER. PT NEEDING ASSISTANCE TO ROOM TO CHANGE PANTS.
--- NOTE | 2019-10-15 17:18 | NUR ---
PT RESTING ON FLOOR IN ROOM AT THIS TIME.
[2019-10-15 19:43] VITALS: BP 108/73
--- NOTE | 2019-10-16 05:11 | NUR ---
191-Report received from day shift and care assumed. She was laying on the floor with head on pillows in her room. She had no c.o. voiced, was chanting, and began singing songs also. She was in her bed soon and took off her pants and brief and said "I'm going to have a baby". She talked about other delusions as well. She asked for covers then and within a few minutes she walked down the hallway with only a shirt on. She was educated about the inappropriateness of this and returned to her room. She was med. compliant and then later fell asleep in the recliner which was in her room. She has slept very sound and very continuous all night, very relaxed presense.
[2019-10-16 09:17] VITALS: BP 101/62
[2019-10-16 10:45] VITALS: BP 101/62
--- NOTE | 2019-10-16 11:19 | NUR ---
0701 Report received from overnight shift, patient urinated and some bowel movement. I had to clean the patient up before she could eat breakfast, patient took medication without incidence. Patient has been very disruptive this morning. Patient has been taking off her clothing, laying naked in the halls. She also was going in people's rooms, Dr. Coughlin ordered Thorazine 37.5mg now and increased her thorazine to 75mg tid. We will continue to monitor patient for safety.
[2019-10-16 19:30] VITALS: BP 137/63
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
[2019-10-17 08:00] VITALS: BP 119/60
[2019-10-17 19:30] VITALS: BP 110/61
--- NOTE | 2019-10-17 20:20 | NUR ---
Patient in recliner or ambulating most of day. Rambling speech and anxious and at times uncooperative with care but much improved than previous days. Drank approximately 2 gulps of skin cleanser this AM while brushing teeth. Bottle had sprayer removed and was sitting next to sink. Dr. Gale notified, no new orders. Dr. Coughlin also notified later in day. Non compliant with ordered orthostatic BP. Able to obtain lying BP of 118 systolic but then refused to sit up for additional BP. Attempted X 2 without success. No s/o distress t/o day. Breath sounds clear t/o, bilaterally equal. Color pink with brisk capillary refill. Reg HR auscultated. Incontinent of large amount of urine per brief. Ambulates without difficulty. Few episodes of lying on floor today. Wound on R big toe scabbed at top with toe less pink than previously.
--- NOTE | 2019-10-17 22:46 | NUR ---
Care assumed of patient at 1915: Patient alert and oriented to person and place. Unknown if patient is disoriented to time and situation or if she is simply being non-compliant with assessment questions. Patient restless, pacing about the halls and day room. Patient incontinent of bladder. Assisted into the bathroom and required one step directions to manage clothing. Staff assisted with james care to ensure proper and thorough. Patient has requested fluids several times this evening. Patient drinking continuously if allowed. Patient took HS medication whole without difficulty. Patient ate 100% HS snack provided. Patient speaking clearly but in a high pitch and rambling. Patient easier to re-direct this evening than in previous nights. Patient appears to understand that people are sleeping and she needs to lower her voice. Patient did request to go to bed and was assisted to bed. Staff responded to bed alarm a few minutes later and she was walking down the hallway with no pants worn. Patient re-directed on appropriate attire when out of room. Patient given a pair of pants which she placed on by herself. Patient then apologized. No aggression observed. Less agitation noted when she is being re-directed. Denies SI/HI/AH/VH. No s/s of delusional or paranoia behaviors observed. Strict boundaries enforced which she appears to be adhering better too this evening. Patient laying on the couch at this time. Patient does report fear of being alone.
[2019-10-18 08:00] VITALS: BP 103/60
--- NOTE | 2019-10-18 08:00 | NUR ---
PT SITTING IN DINNING ROOM IN RECLINER. PT NEEDING ASSISTANCE WITH GETTING ITEMS FROM BREAKFAST TRAY. PT ALSO STATED SHE NEEDS ALOT OF SALT DUE TO TAKING LITHIUM. PT TALKING IN NORMAL VOICE THIS AM. PT ABLE TO WALK, BUT WANTS SOMEONE TO BE WITH HER. PT ALSO STATED TO THIS STRATEGY LEAD THAT SHE WANTED THE NURSE TO STAY WITH HER ALOT TODAY.
--- NOTE | 2019-10-18 12:00 | NUR ---
PT DIDN'T WANT TO COME TO EAT DUE TO WANTING AN XRAY TO LEFT SHOULDER. PT REFUSED TO GO TO GROUP THIS AM DUE TO STATING SHE NEEDED TO BE CLOSE TO BATHROOM FOR BM. PT HAD SMALL BM AFTER BREAKFAST.
--- NOTE | 2019-10-18 18:25 | NUR ---
PT HAS BEEN RAMBLING ON TODAY WITH FLIGHT OF IDEAS. PT TALKING SEXUAL AT TIMES. PT URINATING ON SELF AND SPILLING MILK ON SELF. PT COMPLIANT WITH MEDS, NOT SINGING TODAY. PT STILL TALKING IN REG. VOICE. PT VERBALY DEMANDING.
[2019-10-18 19:41] VITALS: BP 118/48
--- NOTE | 2019-10-18 22:18 | NUR ---
Care assumed of patient at 1915: Patient seated in recliner in day room at start of shift. Patient had an incontinent episode of bladder. Patient assisted to the bathroom, james care provided and linens changed. Patient having excess thirst demanding milk several times. Patient provided one carton of milk with HS snack and was then provided water. Patient alert and oriented to person only. Patient believes that we are in [place], [place] and that we are writing the season of [employer]. Patient not able to be re-directed that she is in the hospital. Patient confused and forgetful. Patient ate 100% HS snack. Took HS medication whole without difficulty. Patient was then pointing to the wall talking about those people running around and dancing and that they need to stop. No people were present at that time. Patient speaking quickly and continuously. Hard to follow what she is saying at times. Patient tangential and jumps from one topic to the next. Patient denies pain or discomfort. Denies SI/HI/AH/VH. Obvious delusions and VH present. No aggression observed. Patient is making fairly good eye contact this evening but does appear suspicious of what is going on around her. Patient was assisted to bed with staff x2 without difficulty. Patient becomes agitated and fearful when her room light is off therefore she is sleeping quietly with her room light on.
--- NOTE | 2019-10-19 08:32 | NUR ---
Date of Admission: 09/29/19 Date of Activity Therapy Assessment: 10/02/2019 Activity Goal: One RT group per day, offer 1:1 when approporaite. Initial Goal:Pt will participate in one recreation therapy group per day to manage anxiety and impulse control. Weekly progress towards goal:Did not achieve Group participation level:minimal Behaviors observed:Pt is disruptive to groups. Pt has been seen disrobing, running around without a shirt (x2) and putting self to the floor. Pt is continuing to cry out and yell during groups and is frequently seeking attention from staff. Pt personal goal this week was to "stay hydrated." Plan: No Change towards goal.
[2019-10-19 09:02] VITALS: BP 124/57
[2019-10-19 12:13] VITALS: BP 124/57
--- NOTE | 2019-10-19 18:02 | NUR ---
ASSUMED CARE AT 0700 TODAY. SHE HAS BEEN QUIETIER TODAY THAN SHE HAS BEEN ON PREVIOUS DAYS. SHE SPENT MOST OF THE MORNING IN BED RESISTING GETTING UP BUT WAS FAIRLY QUIET WHEN SHE DID GET UP. TOOK HER MEDICATIONS CRUSHED IN APPLE- SAUCE WITHOUT PROBLEMS NOTED. ABOUT 1800 SHE WAS NOTED SAYING, "IT'S TIME FOR LIGHTS OUT! EVERYONE INTO BED". AT THAT POINT TWO MEN ON THE UNIT CAME TO THE NURSES STATION STATING "I NEED TO GO TO BED, WE WERE TOLD TO DO SO". THEY WERE INFORMED IT WAS A PEER NOT STAFF. PT. WAS QUIET AFTER THIS "ANNOUNCEMENT". SHE DID NOT PARTICIPATE IN GROUPS. DID EAT MEALS ON THE UNIT.
[2019-10-19 20:14] VITALS: BP 150/64
[2019-10-19 20:15] VITALS: BP 150/64
--- NOTE | 2019-10-20 01:13 | NUR ---
PATIENT SAT UP IN RECLINER CHAIR IN THE DINING ROOM UNTIL BED TIME TONITE. SHE WAS CALM. SHE WOULD TALK WITH OTHER PATIENTS SITTING AROUND HER. AT LEAST SHE WOULD YELL OUT AT THEM AND SAY THINGS LIKE, "SHUT UP", OR "MOVE THIS PERSON OUT OF HERE, I'M TIRED OF THEM." SHE DOES ATTEMPT TO ANSWER QUESTIONS BUT HER SHE SPEAKS IN A WORD SALAD WAY. WHEN GIVEN CHOICES FOR HER HS SNACK TONITE SHE WOULD SAY YES OR NO I LISTED THEM AND THEN SHE ASKED, "CAN i HAVE STUPID?" I ASKED WHAT THAT WAS AND SHE SAID, "YOU KNOW THAT STUFF WITH THIS STUPID IN IT AND ANOTHER STUPID ON TOP." I COULDN'T FIGURE IT OUT SO SHE HAD VANILLA PUDDING AND SHE ATE 50% OF IT. WHEN ANOTHER PATIENT NEAR HER WAS ASKED IF HE WAS READY FOR BED, SHE RESPONDED VERY LOUD AND CLEARLY THAT SHE WAS READY FOR BED. SHE WAS ALSO ASKING IF I COULD GET "THAT LITTLE AZERBAIJANI BOY FOR HER." I TOLD HER THERE WASN'T A LITTLE AZERBAIJANI BOY IN THE ROOM. SHE SAID YES THERE IS AND SHE POINTED TOWARDS THE TV WHERE A COMMERCIAL WAS PLAYING BUT NO AZERBAIJANI BOY. DON'T KNOW IF SHE WAS HALLUCINATING OR DELUSIONAL. PATIENT WAS ASSISTED TO THE BATHROOM. SHE IS IMPULSIVE AT TIMES AND HAS TO BE REMINDED TO SIT BACK DOWN AND FINISH VOIDING WHEN TAKING HER TO THE RESTROOM. SIMPLE STEP BY STEP INSTRUCTIONS GIVEN FOR HER TO HELP HER DO THINGS HERSELF. PATIENT DID TAKE HER MEDS WHOLE TONIGHT WITH WATER. SHE IS CURRENTLY SLEEPING WITH THE LIGHTS ON, SHE FEELS SAFER THIS WAY. BED ALARM ON AND BED IN LOW POSITION. WILL CONTINUE TO MONITOR.
[2019-10-20 09:12] VITALS: BP 150/79
[2019-10-20 12:58] VITALS: BP 150/79
--- NOTE | 2019-10-20 13:10 | NUR ---
ASSUMED CARE AT 0700 THIS MORNING. PT. AWAKENED BY STAFF AND PUT IN RECLINING CHAIR AND TAKEN TO THE UNIT. SHE ATE BREAKFAST THIS MORNING WITHOUT PROBLEMS. SHE TOOK HER SUPPLEMENT AND PUSHED IT OFF THE SIDE OF THE TABLE. THIS RN PICKED IT AND AND REPLACED IT ON THE TABLE. SHE AGAIN PUSHED IT OFF THE TABLE. THE SUPPLEMENT WAS NOT GIVEN TO HER BY THIS RN AGAIN. STAFF WAS PICKING UP TRAYS AND WENT TO PASS HER CHAIR, SHE KICKED IT OUT OF THE HANDS OF THE STAFF THEY PASSED HER TABLE. INITIALLY WHEN OFFERED HER MEDICATIONS, SHE PUSHED HER LIPS HARD TOGETHER AND REFUSED TO TAKE THEM. AFTER GIVING THE OTHER MEDICATIONS TO OTHER PATIENTS, AGAIN SHE WAS GIVEN HER MEDS AGAIN (CRUSHED AND IN PUDDING). THIS TIME SHE DID TAKE THE MEDICATION. SHE WAS MUCH QUIETER THIS MORNING (NO CHANTING OR SINGING).
--- NOTE | 2019-10-20 15:28 | NUR ---
Pt was seen by [facility] for placement
[2019-10-20 20:10] VITALS: BP 120/46
[2019-10-21 00:51] VITALS: BP 120/46
--- NOTE | 2019-10-21 02:58 | NUR ---
PT QUIET IN ROOM AT START OF SHIFT. RESTING COMFORTABLY. TOOK HS MEDS PRESCRIBED. REMAINED IN ROOM FOR DURATION OF THE NIGHT, AND SLEPT WELL THROUGH THE NIGHT TO THIS POINT.
--- NOTE | 2019-10-21 04:01 | NUR ---
RAYON CONER CAME TO SAY THAT PATIENT WAS C/O PAIN. PATIENT STATES SHE HAS PAIN ALL OVER. PATIENT GIVEN ACETAMINOPHEN 650MG PO WITH THICKENED WATER FOR DISCOMFORT.
--- NOTE | 2019-10-21 04:24 | NUR ---
PT AWAKENED AT 0345 AND HAS BECOME INCREASINGLY AGITATED TO THE POINT THAT SHE STRIPPED NAKED AND CAME OUT OF HER ROOM AND TO NURSES STATION AND SAT ON THE FLOOR. RETURNED TO ROOM, DRESSED AND GOT HER TO BED. PT CONTINUED TO "CHANT". DISK RECORDIST CALLED AND THORAZINE 50MG ADMINISTERED TO RT BUTTOCK, WITH GOOD RESULTS. PT CALMED AND IS CURRENTLY SLEEPING.
[2019-10-21 08:00] VITALS: BP 126/76
[2019-10-21 08:48] VITALS: BP 126/76
--- NOTE | 2019-10-21 10:45 | NUR ---
Nutrition: pt continues on [facility] unit. Spoke with nsg as pt has not been appropriate for interviews. Noted 2 different supplement orders. Pt dislikes ensure clear and RD would prefer her to have ensure enlive BID due to higher kcal/protein content. Nsg states pt will drink enlive-Send BID and 1 magic cup daily. PO intake highly variable but average 50% of meals past week. Supplement intake refuse - 100%. Yesterday ate very poorly and slept poorly however at breakfast today consumed 90% of meal. Continues on daily stool regimen with last BM documented on 10/16. Current weight reflecting a 3# loss from admit, 2%- 3 wks-moderate. Continue supplements & monitoring of weights. Do not feel po to subtantially improve with current condition. Continue as low risk with interventions in place.
--- NOTE | 2019-10-21 15:00 | NUR ---
PT ROLLING AROUND ON FLOOR. PT NOT FALLING, JUST LYING ON FLOOR AND GETTING BACK UP. PT HAS SMALL SKIN TEAR TO RT FA NOTIFIED. PT ON 1:1 DUE TO ROLLING AROUND TO HELP PREVENT INJURY.
--- NOTE | 2019-10-21 15:09 | NUR ---
Gutierrez sent referral to [facility]. Pt was denied by [facility]. Multiple calls have been made to [facility] , left Vm
--- NOTE | 2019-10-21 15:32 | NUR ---
The rec therapist informed me that Court had a cut on her arm and was bleeding. I notified Dr. Coughlin and have a page into Dr. Valdovinos. I cleaned the wound with wound cleanser and covered it with a 4x4. The wound is a skin scrape 2 cm x [address] is a 1:1.
--- NOTE | 2019-10-21 15:40 | NUR ---
DR. PETIT AND DR. CONN NOTIFIED OF SKIN TEAR. PT IN RECLINER AT THIS TIME. PT THREW A DRINK ON AN AIDE.
[2019-10-21 19:35] VITALS: BP 129/77
[2019-10-21 21:30] VITALS: BP 129/77
--- NOTE | 2019-10-22 00:55 | NUR ---
PATIENT SAT IN RECLINER IN DINING ROOM TONIGHT. SHE WOULD CRY OUT IN HER SING SONG VOICE AND REPEAT HERSELF. SHE WAS MORE EASILY CALMED WHEN TALKING WITH HER 1:1. PATIENT HAS ORDER TO BE 1:1 WHILE AWAKE. PATIENT ONLY ATE 50% OF HER ICE CREAM TONIGHT AND ONE SPOON OF PUDDING FOR HS SNACK. PATIENT DID TAKE HER MEDS WHOLE WITHOUT INCIDENT. BOILER TESTING TECHNICIAN SAT WITH PATIENT UNTIL SHE FELL ASLEEP IN RECLINER AND THIS NURSE AND BOILER TESTING TECHNICIAN ASSISTED PATIENT TO BATHROOM CARE AN TO BED. PATIENT IS SLEEPING AT THIS TIME. BED IN LOW POSITION AND BED ALARM ON. WILL CONTINUE TO MONITOR.
--- NOTE | 2019-10-22 05:30 | NUR ---
PATIENT HAS SLEPT THRU THE NIGHT. SHE APPEARS COMFORTABLE AND REPOSITIONS HERSELF IN HER BED. INCONTINENCE CHECKS HAVE BEEN DONE ROUTINELY THRU THE NIGHT. BED ALARM ON AND BED IN LOW POSITION.
[2019-10-22 07:45] VITALS: BP 102/65
--- NOTE | 2019-10-22 11:23 | NUR ---
HAS BEEMRESTING IN RECLINER IN DAYROOM FOR LONG PERIODS OF TIME-UPON WAKING IMMEDIATLY BEGINS TO YELL OUT "HELP ME HELP ME" OR "I'M AFRAID" OR "I WANT A DRINK" ETC-REPEATS STATEMENTS OVER AND OVER AGAIN IN A HIGH PITCHED CHILD-LIKE TONE
--- NOTE | 2019-10-22 18:28 | NUR ---
YELLING OUT LOUDLY STARTING AT APPROX 1730-STATING SHE NEEDED TO USE RESTROOM -ASSISTED TO BATHROOM AND VOIDED APPROX 200CC CLEAR YELLOW URINE IN TOILET-NO BLADDER DISTENSION NOTED UPON EXAM. BEGAN YELLING WHEN ASSISTED INTO BED FOR NIGHT AFTER CLOTHING CHANGE,BRIEF CHANGE AND TEETH BRUSHED. STARTED TO YELL OUT "DEBBIE-DEBBIE I AM NOT READY TO " YELLING THIS [id number] BACK IN RECLINER AND POSITIONED FOR COMFORT BUT AGAIN BEGINS TO YELL OUT STATING "I DON'T TRUST YOU GET OUT OF MY ROOM-I USED TO TRUST YOU NOW I DON'T"THORAZINE 50MG IM GIVEN LVG-DOES APPEAR TO BE RESTING QUIETLY.
[2019-10-22 20:37] VITALS: BP 133/63
[2019-10-22 22:33] VITALS: BP 133/63
--- NOTE | 2019-10-23 01:58 | NUR ---
ASSUMED CARE OF PATIENT AT APPROXIMATELY 1915, 10/22/19. THROUGHOUT THE EVENING PATIENT WAS IN DAY ROOM REPEATING HERSELF WITH STATEMENTS 'YOU HATE ME IM GOING TO ' ET 'I CANT DO IT' ET 'IM NOT STRONG ENOUGH TO STAND. PATIENT AMBULATES INDEPENDENTLY WHEN REDIRECTED. SHE THEN CLIMBED TO THE GROUND FROM THE RECLINER AND SHE ROLLED AROUND YELLING OUT 'HELP ME HELP ME.' THIS NURSE ENCOURAGED PATIENT TO RISE FROM THE FLOOR INDEPENDENTLY, TO WHICH PATIENT DID AND LAYED DOWN ON . THROUGHOUT THE EVENING SHE DISPLAYED [facility] BX, THIS NURSE ESCORTED PATIENT TO HER ROOM WHERE SHE BEGAN DISROBING AND STARTED CHANTING NON SENSICAL WORDS IN HER ROOM. PATIENT DID STATE 'I JUST WANT TO ' SHE DID NOT MAKE ANY HI STATEMENTS. WILL CONTINUE TO MONITOR MOOD AND BX FOR CHANGES. SHE DOES NOT APPEAR IN MEDICAL DISTRESS. PATIENT WAS MEDICATION COMPLIANT. THIS NURSE ALSO CONTACTED SHIRIN JIMENEZ NP R/T PATIENT PO THORAZINE DOSE AND IM THORAZINE PATIENT HAD BEFORE THIS NURSE ASSUMED CARE. IT WAS ORDERED TO GIVE THE MEDICATION. WILL CONTINUE TO MONITOR.
[2019-10-23 10:23] VITALS: BP 147/69
[2019-10-23 10:35] VITALS: BP 147/69
--- NOTE | 2019-10-23 11:40 | NUR ---
THE PATIENT HAS BEEN IN HER ROOM RESTING. SHE HAS BEEN CHANTING AND HOLLERING THIS AM. THE PATIENT IS REDIRECTED CONSTANTLY TO CEASE THE LOUD HOLLERING AND CHANTING. SHE HAS BEEN DRINKING WATER AND FLUIDS CONTINOUSLY. BRIEF CHANGED AND CLEANED UP. THE PATIENT WAS VERY LETHARGIC THIS MORNING. SHE WAS NOT AWAKE ENOUGH TO EAT BREAKFAST. HOWEVER SHE IS RAGING ABOUT SOMETHING TO EAT. PATIENT WAS ASSISTED WITH HER LUNCH. AND SHE ATE ABOUT 97% THE PATIENT STATED THAT SHE WAS FULL BUT CONTINUED TO ASKED FOR WATER. SHE IS INCONTINENT. AT THIS TIME SHE IS NOT AMBULATING THIS AM. SHE IS IN A RECLINER. SHE IS ALERT.
[2019-10-23 19:38] VITALS: BP 115/64
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
[2019-10-24 08:08] VITALS: BP 118/79
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
[2019-10-24 08:30] VITALS: BP 118/79
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
--- NOTE | 2019-10-24 12:18 | NUR ---
ADM THORAZINE 62.5MG IM X1 PER ORDERS. PT 1:1 AT THIS TIME. PT ALSO GIVEN LUNCH. PT ATE 100% OF LUNCH. PT ALSO VOIDED IN BRIEF AND TOOK OFF. CLEAN BRIEF PLACED ON PT.
[2019-10-24 13:32] LABS: ALBUMIN 3.2 g/dL (3.4-5.0); DIRECT BILIRUBIN < 0.1 mg/dL (<0.1-0.3); SGOT 43 U/L (15-37); SGPT 30 U/L (30-65); TOTAL BILIRUBIN 0.3 mg/dL (<0.1-1.0); TOTAL PROTEIN 6.8 g/dL (6.4-8.2)
--- NOTE | 2019-10-24 15:18 | NUR ---
PT RESTING OUT IN DINNING ROOM AT THIS TIME IN RECLINER PT ASKED FOR BLANKET.
[2019-10-24 20:06] VITALS: BP 88/55
[2019-10-24 21:07] VITALS: BP 115/51
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
[2019-10-25 08:58] VITALS: BP 122/61
[2019-10-25 09:46] VITALS: BP 122/61
--- NOTE | 2019-10-25 12:29 | NUR ---
0658 Report received from overnight shift, patient was incontinent this morning. i cleaned patient up and took her to the day room for breakfast. she ate pretty god, took medication without incidence. Patient has been quiet, cooperative no outbursts presently. We will continue to monitor patient for safety.
[2019-10-25 12:42] VITALS: BP 122/61
[2019-10-25 20:07] VITALS: BP 110/56
--- NOTE | 2019-10-25 20:57 | NUR ---
PATIENT STRUCK THIS NURSES HAND WITH MEDICATION IN IT, MEDICATION FELL ON THE FLOOR. NOTIFIED SHIRIN JIMENEZ SCOREBOARD OPERATOR WITH ORDERS TO GIVE 62.5MG IM THORAZINE. PT BELIEVES SHE IS 'GOING SOMEWHERE' TOMORROW AND NEEDS TO BE 'WITH IT.' WILL ADMINISTER IM MEDICATION AND CONTINUE TO MONITOR.
--- NOTE | 2019-10-26 01:37 | NUR ---
ASSUMED CARE OF THIS PATIENT AT 1930. SHE WAS SITTING IN DAYROOM WITH PEERS AND SMILED AT THIS HYDRAULIC CHAIR ASSEMBLER AND SAID HELLO. BEHAVING IN AN APPROPRIATE MANNER AT START OF SHIFT, ALTHOUGH REMAINS QUITE DELUSIONAL, DISORIENTED, CONFUSED. UNCOOPERATIVE WITH HS MEDS AND REQUIRING AN INJECTION OF THORAZINE. HAS CALLED STAFF TO ROOM THIS NIGHT TO ASK FOR ASSISTANCE TO THE TOILET, THEN REFUSED TO GET OUT OF BED. NOT CHANTING AND SCREAMING SHE HAD BEEN PREVIOUSLY. SLAPPED HS MEDS OUT OF NURSES HAND EARLIER IN THE SHIFT, STATING SHE HAD PLACES TO BE IN THE AM AND WANTED TO BE ALERT. PHYSICAL EXAM UNREMARKABLE. SORE ON GREAT TOE IS CLEAN AND DRY. NO APPARENT DISTRESS. NO PHYSICAL C/O.
[2019-10-26 09:22] VITALS: BP 107/62
[2019-10-26 12:05] VITALS: BP 107/62
--- NOTE | 2019-10-26 12:20 | NUR ---
THE PATIENT HAS BEEN SITTING IN THE DAY ROOM QUIET AND CALM ALL MORNING EXCEPT FOR TREMORS THE PATIENT IS TRANSPORTING WITH ONE ASSIST FROM THE TO THE TOILET. SHE HAS BEEN ASKING TO GO TO THE BATHROOM. THE PATIENT SITS AND EATS HER MEALS. SHE EXPRESSED HOW MUCH SHE REALLY LIKE MASHED POTATOES AND GRAVY WHICH WAS A PART OF THE LUNCH MENU. SHE HAS BEEN COOPERATIVE WITH STAFF AND COMPLIANT WITH MEDICATIONS. SHE STATED THAT SHE DID NOT WANT ANY MORE OF THE MEDICATION LITHIUM. SHE EXPRESSED THAT THE GOVERNMENT SNEAKS IT ON HER. THE PATIENT HAS NOT NEEDED REDIRECTING THIS AM. SHE HAVE NOT HOLLERED, CHANTED, TAKEN HER CLOTHES OFF OR HAVE LAYED ON THE FLOOR. INFACT, SHE HAVE BEEN APPROPIATE. SHE DENIES SI,HI AND PAIN. CONTINUE TO MONITOR THE PATIENT.
[2019-10-26 20:23] VITALS: BP 112/60
--- NOTE | 2019-10-27 04:27 | NUR ---
1909-Report received from day shift nurse and care assumed. She was in the day bradley sitting in a recliner, conversed in a normal tone of voice paragraphs. She was thirsty and had several drinks. She was medication compliant and went to bed and slept soundly all nite.
--- NOTE | 2019-10-27 09:37 | NUR ---
PATIENT CARE TAKEN OVER AT 1900. PATIENT IN BED SLEEPING AT CHANGE OF SHIFT. APPROACHED WITH MORNING MEDICATIONS AND STATED WAS NOT HUNGRY - CHOSE NOT TO HAVE BREAKFAST. PATIENT AGREED TO TAKE MEDICATIONS - ONE PILL AT A TIME. WAS VERY ANXIOUS AND STATED NEEDED TO HAVE BOWEL MOVEMENT OVER AND OVER AGAIN. ENCOURAGED TO AMBULATE TO BATHROOM AND INSISTED COULD NOT WALK. STAFF ASSISTED HER TO BATHROOM - LEFT TO RETRIEVE BRIEF FOR PATIENT AND FOUND HER BACK IN BED WHEN RETURNING. PATIENT ABLE TO ATTEND TO NEEDS - CHOOSES NOT TO - ENCOURAGED PATIENT TO AMBULATE AND FOCUS ON WALKING. PATIENT FIXATED ON THREE PM MEEDTING TODAY SHE IS CONCERNED WITH. ADVISED WOULD CHECK INTO AND LET HER KNOW.
[2019-10-27 10:21] VITALS: BP 101/52
--- NOTE | 2019-10-27 11:37 | NUR ---
YOU spoke with Shira at [facility] [phone] and he stated that he wanted record of the Level II and proof of payor source. YOU called Kaye Richardson requesting assistance with this.
[2019-10-27 20:11] VITALS: BP 126/58
--- NOTE | 2019-10-27 23:54 | NUR ---
1909-Report received from day shift nurse and care assumed. Court was snoring lightly while asleep laying supine in her bed at shift start. She continued sleeping/snoring lightly all evening. Her VS were taken and wnl. She was not given her HS medications due to sedation, and Dr. Coughlin notified.
[2019-10-28 07:56] VITALS: BP 129/69
--- NOTE | 2019-10-28 08:39 | EKG ---
[address] [address] ELECTROCARDIOGRAM REPORT Name: NILESSEEMA G Room #: [facility] ADM IN M.R.#: [id number] Admission: 09/29/19 Attend Phys: Nahun Coughlin DO Discharge: Date of : 50 Report #: [id number] THIS REPORT FOR: //name// [facility] Test Date: 2019-10-27 Test Time: 17:09:28 Pat Name: SEEMA CAGE Department: Room: [facility] Gender: F Counseling Department Chair: Deangelo GALAVIZ : 1950 Requested By: Nahun Coughlin Order Number: [id number] MD: Kentrell Rider Measurements Intervals Haines Rate: 80 P: 51 SC: 137 QRS: 36 QRSD: 86 T: 59 QT: 393 QTc: 454 Interpretive Statements Sinus rhythm Compared to ECG 10/10/2019 12:06:48 No significant changes Electronically Signed On 10-28-2019 8:39:38 CATALYST RECOVERY OPERATOR by Kentrell Rider [email or web address] <ELECTRONICALLY SIGNED> By: Kentrell Rider MD 10/28/19 0839 08 08 Kentrell Rider MD /TRI
[2019-10-28 08:52] VITALS: BP 129/69
--- NOTE | 2019-10-28 09:05 | NUR ---
THE PATIENT IS IN A RECLINER AND LAP YURIDIA IN THE DAY ROOM. SHE HAS BEEN CHANTING A BIT AND HAD A LOUD OUTBURST DURING BREAKFAST. THE PATIENT WANTED MORE EGGS AND LOUDLY SAID, "MORE EGGS NOW!". SHE WAS GIVEN MORE EGGS. PATIENT WAS FED BREAKFAST. SHE CONTINUE TO ASK FOR WATER AND SALT. SHE WAS GIVEN JUICE AND WATER/2 CUPS. THE PATIENT DENIED HI/SI AND PAIN DURING HER ASSESSMENT. SHE IS INCONTINENT AND HAS ON A BRIEF. SHE HAS BEEN COMPLIANT WITH MEDICATIONS. CONTINUE TO MONITOR.
--- NOTE | 2019-10-28 09:27 | NUR ---
Followup: remains on [facility] unit. Remains on [facility] altered chopped diet with highly variable intakes refuse-100% of meals and refuse-100% of ensure enlive supplements. Wt loss continues now 7 lb over ~3 weeks admit/6% which is signficant. Likely unable to improve given current status and condition. Continue to promote ensure enlive or magic cup supplements, especially if pt refuses a meal. Low nutrition risk with appropriate nutrition interventions in place.
[2019-10-28 19:51] VITALS: BP 116/67
--- NOTE | 2019-10-29 05:47 | NUR ---
1909-Report received from day shift nurse and care assumed. Court was walking around the unit, incontinent of urine, assisted with care and cooperative. She chanted at times, and talked with a flat affect most times appropriate sentences, said she wanted to go home with a flat sad affect. She made her needs known, layed down in her bed, and was HS med. compliant. She awakened at 0200 and was continent of bowel, formed, and wanted to go to the day room afterwards where she fell asleep in a recliner.
--- NOTE | 2019-10-29 07:00 | NUR ---
Assumed care of patient this am. Patient sitting in reclining chair in [facility]. Patient anxious and shaky in her limbs. Patient takes medications crushed in applesauce. Patient ambulates with a walker. Patients affect tense. Patient states that she doesnt know what to do next. Patients assessment reveals clear breath sounds, active bowel sounds, and s1 s2 upon auscultation.
[2019-10-29 09:12] VITALS: BP 108/70
--- NOTE | 2019-10-29 11:45 | NUR ---
Pt did not achieve participation goals for the week. Pt continues to be disruptive to groups crying out. Pt has decreased the amount of placement on the floor and disrobing behaviors. Goal is one group per day or 1:1 session when appropriate.
[2019-10-29 20:24] VITALS: BP 128/69
--- NOTE | 2019-10-30 03:39 | NUR ---
Patient was wanting up in recliner at 1999. So placed in recliner until about 2300 then placed back in bed.Has been sleeping ever since. No other behaviors noted since 2300.
[2019-10-30 08:21] VITALS: BP 107/61
--- NOTE | 2019-10-30 12:34 | NUR ---
PATIENT WAS IN BED WHEN CARE ASSUMED. PATIENT REFUSED TO COME OUT FOR BREAKFAST DESPITE ENCOURAGEMENT BY STAFF. MORNING MEDICATIONS ADMINISTERED AT BED SIDE IN APPLE SOURCE. SHE TOOK MEDS WHOLE IN APPLE SOURCE. PATIENT AGREED TO COME OUT ROOM BEFORE LUNCH, ORENGE JUICE GIVEN PER HER REQUEST. PATIENT STAYED IN DAYROOM CHANTING FOR A WHILE, AND WENT BACK TO BED. LUNCH SAVED, WILL OFFER WHEN PATIENT AWAKEN. PATIENT DENIES SUICIDAL/HOMICIDAL IDEATION. PATIENT REMAIN AANXIOUS, FINE TRENORS NOTED TO ZE UPPER EXTREITY. PATIENT AMBULATES WITH SHUFFLING GAIT, NO OUTBURST OR AGGRESSIVE BEHAVIOR. NO THROWING SELF ON THE FLOOR NOTED AT THIS TIME, WILL MONITOR FOR SAFETY.
[2019-10-30 20:00] VITALS: BP 104/62
--- NOTE | 2019-10-31 02:10 | NUR ---
ASSUMED CARE @ 19:15 ON 11/01/19, IN DAY ROOM AND AMBULATES TO HER ROOM WITH A SHUFFLING GAIT. SPEAKS WITH A FLAT AFFECT, ALERT AND ORIENTED TO SELF ONLY. TALKS ABOUT IT IS SAFE HERE IN THE HOSPITAL, BUT THERE ARE WAR ZONES OUT THERE, YOU ARE TRYING TO KILL ME. REPEATS HERSELF IN A SING SONG CHANT. MEDS OFFERED WHOLE IN [place], PATIENT SPIT TABLETS INTO CUP OF WATER. REFUSED MEDS X2, CRUSHED MEDS AND OFFERED IN APPLESAUCE, WHICH PT ALSO REFUSED. A SECOND NURSE OFFERED THE MEDS, AND PATIENT TOOK HER MEDS. INCONTINENT OF BLADDER IN BED, TAKEN TO THE TOILET, REDRESSED IN CLEAN CLOTHES AND CLEAN SHEETS PUT ON THE BED. BED IN LOW POSITION, BED ALARM SET, WILL CONTINUE TO MONITOR Q 12 MINUTES FOR PATIENT SAFETY.
--- NOTE | 2019-10-31 06:29 | NUR ---
SLEPT 6.8 HOURS OVERNIGHT.
--- NOTE | 2019-10-31 07:00 | NUR ---
Assumed care of patient this am. Patient calm and in good spirits. Patient confused but not chanting. Patient takes medications crushed in applesauce. Patient sitting up at table in mileu. Patient ambulates with walker. Patients affect flat. Patients assessment reveals clear breath sounds, active bowel sounds, and s1 s2 heard with auscultation.
[2019-10-31 07:30] VITALS: BP 117/64
[2019-10-31 08:49] VITALS: BP 117/64
--- NOTE | 2019-10-31 13:50 | NUR ---
Gutierrez sent new referrals to [facility], [facility], [facility] and [place] per Kaye Richardson request. Gutierrez also reported this to Kaye.
[2019-10-31 20:23] VITALS: BP 135/70
--- NOTE | 2019-11-01 04:09 | NUR ---
ASSUMED CARE OF PATIENT ON 10/31/19 AT 1915. PATIENT WAS CALM AND COOPERATIVE THROUGHOUT THE EVENING APPEARING WITH A BRIGHT AFFECT AND SMILING WITH OTHER PATIENTS. THROUGHOUT THE EVENING PATIENT BECAME HYPERVERBAL, TANGENTIAL THOUGHTS, WORD SALAD AT TIMES. SHE PROCEEDED TO REPORT TO THIS NURSE THAT HER ROOM IS 'BUGGED' AND SHE CAN HAVE THE ROOM PHYSICALLY MOVED FROM THE HOSPITAL BY HER SON SINCE HE WORKS FOR '[employer] SHE CONTINUED TO DISCUSS ABOUT NON SENSICAL THINGS, INVESTING MONEY. SHE THEN REPORTED TO THIS NURSE THAT SHE HAS A HX OF A PROLAPSED BLADDER AND STATED 'I DIDNT KNOW IF I NEEDED TO MASTURBATE OR WHAT.' SHE BECAME SEXUALLY PREOCCUPIED AND THIS NURSE LEFT PATIENTS ROOM TO RETURN WITH FEMALE STAFF MEMBER PATIENT REQUESTED SHE BE HELPED TO THE RESTROOM. SHE THEN REPORTED TO THE FORGEMAN HELPER THAT 'I DONT WANT ANYONE ELSE HELPING ME BUT HIM BECAUSE HE REALLY LIKES ME.' THIS NURSE AND FORGEMAN HELPER LEFT ROOM PATIENT DENIED NEEDING TO USE THE RESTROOM. SHE DID NOT REPORT SI HI. SHE DOES REPORT HALLUCINATIONS, BUT THIS DRYCLEANER IS UNSURE OF THE VALIDITY OF THESE CLAIMS. SHE CONTINUES WITH ATTENTION SEEKING BEHAVIOR. NO S/S OF MEDICAL DISTRESS. NURSING WILL MAINTAIN ALL PRECAUTIONS TO ENSURE SAFETY AT ALL TIMES.
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
[2019-11-01 07:55] VITALS: BP 121/73
--- NOTE | 2019-11-01 17:39 | NUR ---
In room, incontinent of large amount of urine in brief and bed. Compliant and cooperative with cleaning herself up, brushed teeth. Constant verbalizations of delusions and some coherent speech. States she is working for the [employer] and is going to shut down the unit. Smiling without any agression or acting out behaviours. Breath sounds clear t/o, bilaterally equal. Color pink with brisk capillary refill and palpable peripheral pulses. Regular HR auscultated. Active bowel sounds over soft, flat abdomen. 2 cm red circular area to inside of R buttock. Scabbed circular area to top of R big toe. 0900 Sitting quietly at breakfast table eating and behaving appropriately. Refused all AM meds despite multiple requests. States firmly "No thank you. I'm not taking any medicines from here." 2nd RN attempted to give on reapproach but she still refused. No backup meds ordered. AUTOMOTIVE ENGINEERING TEACHER Aboud notified, states to give PRN IM medication if she becomes agitated. 1700 Took 1500 meds with encouragement. Continues with delusional speech and theories stating things are coming out of the rodriguez during the night. Talking to herself in her room but very cooperative with getting up and coming out to the dining room for dinner. No s/o distress. Sitting at table conversing with peers. No singing or falling to the ground today. Clotrimazole cream applied to red circular lesion on R buttock. Appears much bone drier operator this afternoon.
[2019-11-01 21:20] VITALS: BP 105/51
--- NOTE | 2019-11-02 01:14 | NUR ---
Care assumed of patient at 1915: Patient alert and oriented to person and place. Patient pleasantly confused. Patient speaking disorganized speech, tangential thoughts. 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 Patient ambulated to the bathroom with staff assist. Some dribbling noted but otherwise continent of bladder. Took HS medication when offered with large glass of ice water and a straw. Attempted to chew medications at which time she stated "I don't know why I did that, that tastes aweful". No apparent hallucinations or paranoia observed. Patient stated she needed a large Coke to get some extra caffeine because then she will sleep better. Patient speaking constantly with several random thoughts. Denies pain or discomfort. Patient did ask nurse to change her diaper in bed because she was tired. Nurse declined but assisted to the bathroom. Ate 100% HS snack. No aggression or agitation observed. Denies SI/HI. Reddened area to right side of sacral split observed. Cream applied per MD order. Patient was able to go to sleep at a reasonable hour and has been resting quietly since.
[2019-11-02 05:56] LABS: ABSOLUTE NEUTROPHILS 4.2 thou/uL (1.4-8.2); BASOPHILS 1.1 % (0.0-2.0); EOSINOPHILS 3.7 % (0.0-3.0); HEMATOCRIT 34.4 % (37.0-47.0); HEMOGLOBIN 11.2 gm/dL (12.0-15.0); LYMPHOCYTES 24.3 % (24.0-44.0); MCH 31.3 pg (26.0-34.0); MCHC 32.7 g/dL (28.0-37.0); MCV 95.8 fL (80.0-100.0); MONOCYTES 9.5 % (1.0-8.0); PLATELET COUNT 454 thou/uL (150-400); POLYS 61.4 % (36.0-66.0); RBC 3.59 mil/uL (4.20-5.00); WBC 6.8 thou/uL (4.0-11.0)
[2019-11-02 06:03] LABS: CALCIUM 9.8 mg/dL (8.5-10.1); CREATININE 0.9 mg/dL (0.6-1.0)
[2019-11-02 09:39] VITALS: BP 118/61
[2019-11-02 10:47] VITALS: BP 118/61
--- NOTE | 2019-11-02 10:59 | NUR ---
0658 REPORT RECEIVED FROM OVERNIGHT SHIFT, PATIENT WAS UP IN DAY ROOM WALKING AROUND TALKING TO SELF. PATIENT ATE SOME BREAKFAST TOOK MEDICATION WITHOUT INCIDENCE. PATIENT THEN LAID ON SOFA TO REST, SHE HAS NOT BEEN INTRUSIVE SHE WAS YESTERDAY. PATIENT IS DELUSIONAL AT TIMES THINKING SHE IS GOING TO [facility] TO DO THERAPY ON PATIENTS. WE WILL CONTINUE TO MONITOR PATIENT FOR SAFETY.
--- NOTE | 2019-11-02 19:59 | NUR ---
MANUAL BP TAKEN 92/54.
[2019-11-02 20:00] VITALS: BP 92/54
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
[2019-11-03 07:30] VITALS: BP 94/62
--- NOTE | 2019-11-03 08:30 | NUR ---
PT UP OUT OF ROOM WITH NO TOP ON. PT WALKING TO DINNING ROOM. PT NEEDED DIRECTED TO ROOM WITH STAFF TO GET DRESSED. PT DIDN'T HAVE ANY SOCKS ON AND RT TOE APPEARED REDDNED. ENCOURAGED USE OF SOCKS. PT DID SIT IN DINNING ROOM AND HAD BREAKFAST. THIS OUTREACH EDUCATOR GIVING MEDICATIONS AND PT THREW MEDS ON FLOOR AND SAID OLI INGRAM SAID NO.
[2019-11-03 08:35] VITALS: BP 94/62
--- NOTE | 2019-11-03 08:36 | NUR ---
YOU recieved a VM form Kaye Richardson stating that there needed to be clarification about this pt's memory impairment with [facility]. YOU called Pattie at [facility] and provided clarification and asked for a re consideration for placement. She reported she would get back with me later.
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
--- NOTE | 2019-11-03 11:30 | NUR ---
PT CALMED DOWN 15-20MIN LYING ON BED. PT UP WALKING AROUND IN ROOM WANTING TO GET OUT. PT STILL NAKED AT THIS TIME. ENCOURAGED PT TO PUT CLOTHES.
--- NOTE | 2019-11-03 12:11 | NUR ---
PT RESTING AT THIS TIME. CLOTHES REAPPLIED TO PATIENT.
--- NOTE | 2019-11-03 12:15 | NUR ---
PT UP NOW IN DINNING ROOM.
--- NOTE | 2019-11-03 15:29 | NUR ---
PT RESTING AT THIS TIME.
[2019-11-03 19:57] VITALS: BP 125/59
--- NOTE | 2019-11-04 02:13 | NUR ---
Care assumed of patient at 1915: 1:1 sitter with patient at all times. Patient up pacing the halls, rooms. Requiring constant re-direction. Patient screaming excessively for help and water this shift. Patient disrobing self independently then screaming for help to put her clothing back on. Patient stating a girls name and demanding that we help her and go get her now. Patient intrusive to staff and peers. Patient incontinent of bladder x2 and required assist for james care and linen changes. Patient resistive to declining assistance after having incontinent episodes. Patient required staff x2 due to refusal of assistance. Patient finding one phrase then repeating the same phrase over and over. Patient speaking tangential, rambling, mumbling sentences and words. Patient took HS medication whole with a cup of apple juice without difficulty. Patient continued all behaviors as listed above but started to show more agitation when re-directed. Nurse needed to assist sitter several times due to threatening behaviors, impulsivity and intrusiveness. Due to increase in agitated behaviors, nurse administered PRN Thorazine IM as ordered by MD. Patient assisted to bed for injection with sitter remaining at bedside. Patient was able to go to sleep after approximately 30 minutes and has been resting quietly since.
--- NOTE | 2019-11-04 08:10 | NUR ---
11/03/19. Gutierrez spoke with Jesusita and provided her an update. She then reported that [facility] has a bed opening and that she was going to pay for that bed unitl her mom was ready for d/c . Gutierrez then called [facility] to confirm this. Gutierrez reported that this pt will likely be ready for d/c by the end of this week. Gutierrez reported this to Dr campos
--- NOTE | 2019-11-04 08:50 | NUR ---
Followup: still agitated with aggresive behaviors at times. Intake has been improving more consistently 75-100% and taking up to 100% of Ensure supplements. Newest wt 132 lb on 11/01 ? as past trend closer to 110 lb. Continue current nutrition interventions. Recommend reweigh.
[2019-11-04 10:47] VITALS: BP 102/53
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
[2019-11-04 18:04] VITALS: BP 102/53
[2019-11-04 19:50] VITALS: BP 113/59
--- NOTE | 2019-11-04 23:43 | NUR ---
Care assumed of patient at 1915: Patient seated in recliner in day room at start of shift. Patient assisted to her room due to having incontinent episode of bladder. Patient hyperverbal, changing topic from one second to the next. No specific inappropriate comments noted. Patient impulsive and getting up quickly without gaining balance and starting to walk quickly through the halls. Patient was easier to re-direct this evening. Patient was able to manage her clothing and james care with one step directions and supervision. Patient denied pain or discomfort. Some delusional comments noted. Denies SI/HI/AH/VH. Ate 100% HS snack. Took HS medication whole without difficulty. No disrobing observed. Was able to be directed to bed and only got out of bed once in which she notified staff that she needed to go to the bathroom. After using the bathroom, staff assisted patient back to bed where she was able to fall asleep without difficulty and has been resting quietly since.
--- NOTE | 2019-11-05 07:00 | NUR ---
Assumed care of patient this am. Patient sitting out in mileu in reclining chair. Patient yelling intermittently and difficult to redirect. Patient can ambulate without assistance but has an unsteady gate. Patient takes medications crushed in pudding or applesauce. Patients affect flat. Patients assessment reveals clear breath sounds, active bowel sounds, and s1 s2 heard with auscultation.
[2019-11-05 07:30] VITALS: BP 141/57
[2019-11-05 09:23] VITALS: BP 141/57
--- NOTE | 2019-11-05 12:06 | NUR ---
PT's current goal is to participate in one individual recreational therpy group per day to manage anxiety/depression. Although behaviors often prevent her from doing to the Pt often choses to partake in reading the newspaper daily or coloring as recreational coping skills when calm. On track/No change towards this goal.
[2019-11-05 20:04] VITALS: BP 98/58
--- NOTE | 2019-11-06 03:15 | NUR ---
PATIENT ASSESSED AND IS ALERT X 2. SKIN WARM AND DRY.RESP EVEN AND UNLABORED. IS VERY DELUSIONAL MOST OT THE EVENING. TAKES MEDICATION CRUSHED IN APPLESAUSE. ALSO TAKES THIN LIQUIDS. IS VERY MANIPULATING DURING THE HS CARES. WANTED HER HEAD UP THEN DOWN THEN FEET UP AND DOWN AND THEN STARTED ASKING FOR HER HEAD TO BE PUT BACK UP. HAS A SCAB ON HER RIGHT GRAT TOE. OPEN TO AIR. RIGHT ARM ABRASIONS NOTED. COMPLAINS OF HER LEFT SHPOULDER HURTING WHEN WE PLACED HER IN BED. NO EDEMA NOTED.INCONT OF BOWEL AND BLADDER. WEARS A BREIF DURING THE DAY. SITS IN WHEEL CHAIR WITH LAP YURIDIA. NO EDEMA NOTED TO LOWER EXTREMITIES. SHE SHE DOES STAND AND WALK WITH WALKER WELL, WITH STEADY FEET. HAD NO AH/VH NOTED THIS SHIFT. CONT PLAN OF CARE.
[2019-11-06 08:00] VITALS: BP 109/52
[2019-11-06 08:06] VITALS: BP 109/52
--- NOTE | 2019-11-06 08:54 | NUR ---
PT SITTING OUT IN DINNING ROOM. PT EATING BREAKFAST. PT EARLIER WAS LOOKING AT MAGAZINE AND WAS ACTUALLY READING AND UNDERSTANDING WHAT WAS ON THE PAGE. PLACED PT MEDS DOWN AND PT STATED SHE DIDN'T NEED HER THORAZINE AND DEPAKOTE WAS WAS HER HUSBANDS. PT THREW MEDS ON FLOOR.
--- NOTE | 2019-11-06 09:15 | NUR ---
TRIED TO GIVE MEDS CRUSHED IN YOGART. PT COMPLAINED OF TONGUE BURNING, PT REFUSED THE CRUSHED MEDS, PT DID TAKE HER CARDIZIEM.
--- NOTE | 2019-11-06 10:48 | NUR ---
PT WAS GIVEN IM OF THORAZINE DUE TO NOT TAKING PO THORAZINE.
--- NOTE | 2019-11-06 17:19 | NUR ---
PT HAS BEEN SITTING AT TABLE TODAY, TALKING TO PEERS IN A NORMAL VOICE. PT LOOKING AT MAGAZINES AND TOOK 1500 MED.
[2019-11-06 19:31] VITALS: BP 134/72
[2019-11-06 22:45] VITALS: BP 134/72
--- NOTE | 2019-11-07 00:53 | NUR ---
PATIENT HAS BEEN UP IN DINING ROOM TONIGHT SITTING AT A TABLE READING MAGAZINES QUIETLY. SHE REFUSED HER THORAZINE PO AND WAS GIVEN AN INJECTION OF THORAZINE 50MG. PATIENT HAS BEEN VISITING WITH PEOPLE IN THE DAYROOM THEY GET UP TONIGHT. SHE WALKED HERSELF TO HER ROOM TO USE THE RESTROOM AND REFUSED HELP. SHE USED THE RESTROOM AND EVEN WASHED AND DRYED HER HANDS WITHOUT PROMPTING. PATIENT HAS HAD FLIGHT OF IDEAS TONIGHT. SHE HAS BEEN SUSPICIOUS OF ANY MEDS GIVEN TO HER AND REFUSING PO PRNS. SHE STATES SHE IS NOT GOING TO SLEEP TONIGHT BECAUSE SHE IS WAITING FOR "HER LORD TO COME AND GET HER." SHE HAS BEEN CALM FOR THE MOST PART BUT IS RESTLESS AND PAYING LOTS OF ATTENTION TO MEN. SHE GOT DOWN ON THE FLOOR BESIDE ONE AND STATES SHE NEEDS TO BOW TO HIM SO HE KNOWS HE IS THE SPECIAL ONE. WILL CONTINUE TO MONITOR.
--- NOTE | 2019-11-07 01:30 | NUR ---
PATIENT UP AND INTERUPTING NURSES AND PEOPLE IN THE DINING ROOM WITH HER JAMIN OF QUICK SPEECH AND FLIGHT OF IDEAS. THIS NURSE CALLED Juan F JIMENEZ AND ASKED FOR AN INJECTION TO HELP PATIENT TO CALM HERSELF SO SHE WOULD GO TO BED AND DECREASE HER JAMIN/AGGITATION. LORAZEPAM 1MG IM GIVEN TO PATIENT IN RIGHT HIP PER Juan F JIMENEZ NP. WALKED PATIENT BACK TO HER ROOM. SHE TOOK HER MAGAZINES AND IS SLEEPING WITH THEM TUCKED UNDER HER SHIRT TO KEEP PEOPLE FROM STEALING. FREQUENT ROOM CHECKS BEING DONE. PATIENT WAS GIVEN CHOICE TO TAKE LORAZEPAM PO OR IM. SHE CHOSE IM. SHE THEN SAID SHE CHANGED HER MIND AND DIDN'T WANT EITHER ONE. GAVE HER A CHOICE OF INJECTING HER ARM OR HER HIP. SHE SAID HIP. SHE TOOK INJECTION WITHOUT INCIDENT. BED ALARM ON AND BED IN LOW POSITION.
--- NOTE | 2019-11-07 01:39 | NUR ---
PATIENT BACK UP. INSISTS SHE NEEDS TO STAY UP TO WATCH FOR DR MCCRAY TO COME. SHE THEN SAID SHE NEEDS SOME ORANGE JUICE. I TOLD HER SHE NEEDS TO GO TO SLEEP AND I WOULD BE GLAD TO TAKE HER TO HER ROOM AND SIT WITH HER FOR A FEW MINUTES. SHE SAID SHE WAS CONFUSED ON THE TIME AND DIDN'T KNOW IT WAS SO LATE. SHE AGREED TO DRINK OJ AND THEN LET ME TAKE HER TO HER ROOM. WHILE SHE WAS WAITING FOR HER JUICE SHE STARTED GAGGING AND COUGHING. I ASKED IF SHE WAS OK. SHE STATES SHE WAS TRYING TO COUGH UP THE PILL SHE WAS JUST GIVEN. I TOLD HER SHE DID NOT JUST HAVE A PILL, SHE HAD AN INJECTION IN HER RIGHT HIP. SHE THEN STOPPED TRYING TO COUGH UP ANY PILLS. PATIENT SITTING QUIETLY AND DRINKING OJ IN THE DINING ROOM AT THIS TIME.
--- NOTE | 2019-11-07 02:28 | NUR ---
PATIENT UP AND FLIPPING ON AND OFF DINING ROOM LIGHTS AND TRYING TO PUSH EMERGENCY BUTTONS. BECOMES MORE AND MORE AGITATED TRYING TO GET HER TO GO TO HER ROOM OR TO SIT DOWN. PATIENT MANIC AND REFUSING TO SLEEP. CALLED AND RECEIVED NEW ORDER FROM Juan F JIMENEZ NP FOR HALDOL 5MG IM. PATIENT TOOK IM WITHOUT INCIDENT. SHE IS CURRENTLY SITTING IN DINING ROOM AT A TABLE AND QUIET. WILL CONTINUE TO MONITOR.
--- NOTE | 2019-11-07 05:22 | NUR ---
PATIENT SLEPT FOR ABOUT 30 MINUTES TONIGHT. AFTER GIVEN HALDOL 5MG AT 0230 PATIENT HAS BEEN SITTING IN RECLINER QUIETLY FOR THE MOST PART AND DOZING OFF AND ON. PATIENT UP TO THE BATHROOM AT 0500 AND SHE WAS INCONTINENT. HELPED PATIENT CLEAN UP AND CHANGE BRIEF AND CLOTHES. PATIENT WENT BACK TO RECLINER TO SIT DOWN. PATIENT GIVEN OJ THAT SHE WAS GIVEN THIS TIME. PATIENT IS SITTING QUIETLY AND LOOKING THRU MAGAZINES.
--- NOTE | 2019-11-07 05:53 | NUR ---
PATIENT GOT UP FROM HER RECLINER AND WENT AND SET OF EMERGENCY ALARM AND NURSE ALARM. IMMEDIATELY WALKED PATIENT TO QUIET ROOM. EXPLAINED WHY SHE WAS THERE AND TOLD HER SHE NEEDED SOME QUIET TIME TO CALM DOWN. FCO CHEUNG RN WATCHED PATIENT IN QUIET ROOM WITH DOOR UNLOCKED WHILE I CALLED Juan F JIMENEZ NP. ORDER GIVEN FOR GEODON 10MG IM ONETIME. PATIENT GIVEN IM IN RIGHT HIP. PATIENT CONTINUED TO ARGUE, AND PACED IN QUIET ROOM AND REMOVED MATTRESS OFF BED. PT LAID DOWN FOR 5 MINUTES. PT STATES SHE WANTS TO SLEEP IN HER ROOM. PATIENT TAKEN TO ROOM. WILL MONITOR CONTINUOUSLY TILL SHOT TAKES EFFECT.
--- NOTE | 2019-11-07 06:48 | NUR ---
PATIENT SLEEPING IN HER ROOM IN HER BED. PT SLEPT 25 MINUTES LAST NIGHT.
--- NOTE | 2019-11-07 09:10 | NUR ---
SW sent updates to [facility]. If this continues to trend well with her beahviors, pt might d/c early next week,
--- NOTE | 2019-11-07 10:14 | NUR ---
IRRITABLE,ANGRY AFFECT SO FAR THIS SHIFT. REFUSES TO FOLLOW VERBAL DIRECTION FROM NURSING STAFF-STATING "I DON;T HAVE TO DO ANYTHING YOU SAY"SPEECH PRESSURED,CIRCUMSTANTIAL,NON-GOAL DIRECTED. INITALLY DURING AM MED PASS STATES WOULD TAKE HER MEDS BUT WHEN OPENED AND GIVEN TO HER SHE THREW THEM ON FLOOR IN DAYROOM. WHEN INFORMED SHWE WOULD REQUIRE IM STATES "GIVE ME ONE MORE CHANCE-WHEN MEDS GIVEN TO PT 2ND TIME AGAIN THREW THEM ON FLOOR STATING "YOU ARN'T DOING IT RIGHT THAT IS NOT HOW THEY DID IT AT [facility]" EMMAAZINE 50MG IM LVG PER ORDER FOR MED REFUSAL,
[2019-11-07 11:33] VITALS: BP 139/67
--- NOTE | 2019-11-07 15:40 | NUR ---
REFUSES 1500 [facility] STATING "THAT ISN'T MINE-DR. STUART DOESN'T WANT ME TO TAKE THAT" THORAXINE 75MG GIVEN IM IN RIGHT DELTOID PER ORDER FOR MED REFUSAL-YELLING AND SCREAMING "WHY YOU TRYING TO KILL ME YOU CRAZY BITCH"
[2019-11-07 19:22] VITALS: BP 121/64
--- NOTE | 2019-11-07 21:14 | NUR ---
PT SPIT OUT ALL OF HER THORAZINE AT MEDS, BACK UP IM GIVEN ORDERED.
--- NOTE | 2019-11-08 05:06 | NUR ---
ASSUMED CARE OF THIS PT FOR INTERFACE CONTROL OFFICER AROUND 1900. PRESENTS WITH RAPID AND PRESSURED SPEECH. SOME DELUS[place] NOTED [place] [facility] [place]COMPLIANT WITH CARES OR MEDS. INCONTINENT ALTHOUGH SHE IS ABLE TO WALK AND KNOWS WHEN SHE HAS THE URGE TO URINATE. MUCH ATTENTION SEEKING BEHAVIOR
[2019-11-08 09:21] VITALS: BP 112/66
[2019-11-08 10:32] VITALS: BP 112/66
--- NOTE | 2019-11-08 12:38 | NUR ---
Lying in bed this am, cooperative with AM cares. Rambling speech stating that she is ready for discharge, unhappy with care, wants to teach, comparisons to [place]. Confused speech at times. When initially approached with AM meds refused and stated they did not appear to be meds prescribed. Agreed to take Senna but then hit my hand away spilling meds when approached with rest of medication. Began demanding 2nd breakfast of eggs and magallanes stating that she needed something more substantial to eat. Meds crushed and placed in yogurt. Asked if she wanted yogurt with her meds and took without difficulty. [place] through she stated that I should have given her meds whole. Did not recall hitting the meds away that had occurred 15 min prior. Denies SI/HI. Breath sounds clear t/o, bilaterally equal. Color pink with brisk capillary refill and palpable peripheral pulses. Regular HR auscultated. Brief wet with pale yellow urine. Active bowel sounds over soft, flat abdomen. Up ambulating with slightly irregular gait. Scab on top of R big toe intact without redness or drainage. Dr. Garrido here assessing patient. 1250 Sleeping in recliner in day room most of morning. Ate small amount of lunch and 100% of Ensure supplement. No s/o distress.
[2019-11-08 19:41] VITALS: BP 119/55
--- NOTE | 2019-11-08 20:56 | NUR ---
PATIENT TOOK PO MEDICATION ORDERED, WITH HELP OF OFFERING ORANGE JUICE AND WATER.
--- NOTE | 2019-11-09 03:55 | NUR ---
ASSUMED CARE OF PATIENT FOR EQUIPMENT OPERATOR INTERMODAL YARD. WAS LYING IN BED SLEEPING AT BEGINNING OF SHIFT WAS WOKEN WHEN APPROACHED FOR ASSESSMENT. BEGAN WALKING OUT OF ROOM AND WAS ASKED IF SHE NEEDED TO USE THE RESTROOM, STATED SHE HAD JUST GOME. PROMPTLY WALKED TO DAYROOM AND URINATED IN A CHAIR. STAFF ATTEMPTED TO ASSIST HER TO ROOM, PUT HERSELF ON THE FLOOR AND STARTED RAISING HER VOICE AND CHANTING. AFTER GETTING CLEANED UP BY STAFF, BECAME MUCH MORE REDIRECTABLE. AND WAS COOPERATIVE WITH ASSESSMENT PROCESS. NO C/O. NO APPARENT DISTRESS. WILL CONTINUE TO MONITOR
--- NOTE | 2019-11-09 06:22 | NUR ---
PATIENT THREW A CUP OF WATER AT STAFF ASSISTING PATIENTS IN THE DAY ROOM. PATIENT STATES 'IM SO SORRY, ID NEVER DO THAT, IM SORRY. IM SORRY. EYES CLOSED DURING THIS TIME. WILL CONTINUE TO MONITOR.
--- NOTE | 2019-11-09 08:40 | NUR ---
Date of Admission: 09/29/19 Date of Activity Therapy Assessment:10/02/2019 Activity Goal:One group per day or 1:1 session Initial Goal:Pt will participate in one recreation therapy group per day to manage anxiety and impulse control. Weekly progress towards goal:Did not achieve Group participation level:Passive Behaviors observed:Pt is disruptive in groups. Pt has been seen grabbing staff, throwing water at pts and being mean towards pt. Pt continues to cry out and yell when she feels her needs aren't being met. Pt shows poor boundaries. Plan: No change towards goal
[2019-11-09 09:08] VITALS: BP 92/63
[2019-11-09 09:32] VITALS: BP 92/63
--- NOTE | 2019-11-09 10:04 | NUR ---
0700 Report received from overnight shift, patient was babbling that she needs help. She ate breakfast took medication without problems, patient has confusion. Patient has outbursts and is delusional, will continue to monitor patient for safety.
[2019-11-09 19:49] VITALS: BP 101/52
[2019-11-09 21:45] VITALS: BP 101/52
--- NOTE | 2019-11-09 23:32 | NUR ---
PATIENT HAS BEEN NEEDY AND FUSSY TONIGHT. SHE HAS BEEN WANTING THIS NURSE TO SIT AND HOLD HER HAND. I HELD IT FOR A BIT AND RUBBED HER BACK TO HELP HER BE COMFORTABLE IN BED. SHE DIDN'T WANT LEFT ALONE SO BROUGHT HER OUT TO DINING ROOM AND LAYED HER BACK IN RECLINER WITH PILLOW AND BLANKET. THIS NURSE SAT BESIDE HER AND CHARTED. PATIENT WAS STILL FOR A BIT AND THEN STARTED WANTING WATER AND FOOD. SHE HAD HAD A SNACK EARLIER, BUT DID GIVE HER SOME WATER AND MYRNA CRACKERS. SHE ATE ONE MYRNA CRACKER AND DRANK SOME WATER. SHE HAS BEEN INCONTINENT TWICE TONIGHT. BOTH TIMES SHE WAS HEAVLY SOAKED. PATIENT WAS CLEANED UP EACH TIME. SMALL PINKEND COCOPAH AREA AT RIGHT BUTTOCK. NOT OPEN IS STILL THERE. PATIENT WAS TAKEN BACK TO BED AT HER REQUEST AND IS SLEEPING NOW. SHE DID TAKE ALL OF HER PILLS WITHOUT A PROBLEM. SHE IS SAD AND IS WANTING TO GO HOME. TRIED TO ENCOURAGE AND TALK WITH HER ABOUT THIS. REDIRECTED HER THOUGHTS WHEN I COULD. BED ALARM ON AND BED IN LOW POSITON.
--- NOTE | 2019-11-10 02:26 | NUR ---
PATIENT IS STILL SLEEPING. SHE APPEARS COMFORTABLE AND RELAXED. PATIENT IS DRY AT THIS TIME. BED ALARM ON AND BED IN LOW POSITION. BED RAILS UP X 3 FOR SAFETY. PATIENT HAS YELLOW NONSLIP SOCKS ON.
--- NOTE | 2019-11-10 04:05 | NUR ---
PATIENT UP TO THE BATHROOM WITH ASSIST AND INCONTINENCE CARE DONE AND GOWN AND BRIEF CHANGED. PATIENT BACK TO SLEEP. BED ALARM ON AND BED IN LOW POSITION.
--- NOTE | 2019-11-10 06:42 | NUR ---
PATIENT UP AND WALKING WITH A WALKER. SHE IS CALM AND SITTING AT A TABLE WITH ANOTHER MALE PEER. PATIENT IS QUIET YET TODAY. HER HAIR IS COMBED AND GLASSES ARE ON. CONTINUE TO MONITOR.
[2019-11-10 07:56] VITALS: BP 102/63
--- NOTE | 2019-11-10 11:17 | NUR ---
SW sent updates to [facility] and confimred a d/c for 11/12 at 9am. Sw will set up transportation
[2019-11-10 19:39] VITALS: BP 104/53
[2019-11-10 23:24] VITALS: BP 104/53
--- NOTE | 2019-11-11 00:41 | NUR ---
PATIENT SLEEPING WHEN I CAME ON SHIFT AT 1900. PATIENT WAS AROUSABLE WHEN I DID HER ASSESSMENT AND SHE TOOK HER MEDS WHOLE WITHOUT ISSUE. PATIENT WENT BACK TO SLEEP. CHECKED ON PATIENT AN HOUR LATER AND SHE AND HER BED WAS SOAKED WITH URINE. INCONTINENCE CARES DONE AND BED CLEANED AND CHANGED. PATIENT BACK TO BED. PATIENT SLEPT AGAIN AND BED ALARM WENT OFF AT 0030. BURLESQUE DANCER FOUND PATIENT IN THE BATHROOM WITH HER CLOTHES OFF AND BED SOAKED AND CLOTHES SOAKED. INCONTINENCE CARE DONE AND BED CHANGED. PATIENT WENT BACK TO BED AFTER SHE TOLD THE BURLESQUE DANCER'S "I AM THE ZAIRE AND YOU ARE TO DO WHAT I SAY." PATIENT PUT HERSELF BACK IN BED. BED ALARM ON AND BED IN LOW POSITION. CONTINUING TO MONITOR.
--- NOTE | 2019-11-11 05:37 | NUR ---
PATIENT AWOKE AND WAS CRYING OUT AT 0500. PATIENT WAS IN BED SOAKED AND CRYING "I WANT TO GO HOME.' SHE WAS ANXIOUS AND KEPT REPEATING SHE WANTS TO GO HOME. CALMED PATIENT AND WALKED HER TO THE BATHROOM AND PATIENT WAS WASHED UP. SHE HAD A SMALL GOLF BALL SIZED VERY HARD BALL OF STOOL THAT ROLLED FROM HER BRIEF. BED WAS CHANGED AND CLEANED. TOLD PATIENT SHE WILL GET TO GO HOME TOMORROW LONG HER BEHAVIORS ARE GOOD TODAY. PATIENT WENT BACK TO BED AND THEN GOT UP. ALARM WENT OFF AND PATIENT WALKED INTO THE CORDERO AND LAID DOWN. WHEN THE SUPERVISOR SHEARING'S WENT TO HELP GET HER UP SHE SAID,"OH GOOD, NOW THEY CAN TAKE ME TO THE HOSPITAL TO GET SOME HELP." PATIENT PUT BACK TO BED. LORAZEPAM 1MG PO GIVEN FOR ANXIETY. GAVE PATIENT SOME WATER AND REFILLED CUP WITH MORE WATER. PATIENT CALMED AND SAID SHE THOUGHT SHE COULD REST NOW. PATIENT BACK TO SLEEP. BED ALARM ON AND BED IN LOW POSITION. CONTINUING TO MONITOR.
--- NOTE | 2019-11-11 08:39 | NUR ---
Followup: eating 100% of meals and taking oral supplements. New wt 128 lb, gaining and BMI is appropriate 21. Likely discharge soon. Remains low nutrition risk
[2019-11-11 08:59] VITALS: BP 115/53
--- NOTE | 2019-11-11 11:28 | NUR ---
ASSUMED CARE OF PATIENT AT 0715AM ON 11/11/19. PATIENT IN DAYROOM AMBULATING TO HALLWAY WHILE MOANING AND CRYING. DENIES SI/HI AT THIS TIME, STATES " I WANT TO GO HOME. REDIRECTED PATIENT TO ROOM AND ASKED IF SHE WANTED TO LAYDOWN AND REST TILL BREAKFAST. PATIENT LAYED DOWN X15 MIN THEN GAS TURBINE POWERPLANT MECHANIC ASSISTED HER TO BATHROOM WITH BRIEF SOAKED. ASSISTED PAIENT TO GET DRESSED THEN ASSISTED TO DAYROOM FOR BREAKFAST. ATE 100% OF BREAKFAST WITH EXTRA FLUIDS WELL. AT 0850 AM SITTING IN DAYROOM AND PARTICIPATES IN REC THERAPY GROUP. AFTER GROUP CONTINUES TO SIT IN DAYROOM AND ACTING APPROPRIATE WHILE TALKING TO OTHER PATIENTS. AT 1015 PATIENT IN BED SLEEPING WITH EYES CLOSED.
--- NOTE | 2019-11-11 13:56 | NUR ---
Gutierrez will send updates before leaving today at 4pm. Gutierrez called and left another Vm for mirela Mc reporting that pt will d/c tomorrow to [facility] via transportation van at 9am
--- NOTE | 2019-11-11 16:09 | NUR ---
PATIENT SLEPT FROM 1015AM TO 1350, WHEN ASKED HOW SHE SLEPT PATIENT STATES "I THINK I SLEPT WELL". SITTING IN DAYROOM EATING. TOOK MED WHOLE WITHOUT INCIDENT. CALM AND COOPERATIVE. MOVES TO CHAIR AND WATCHES TV COMMUNICATING APPROPRIATE WITH OTHER PATIENTS AND STAFF.
[2019-11-11 19:47] VITALS: BP 108/40
--- NOTE | 2019-11-12 00:45 | NUR ---
1909-Report received from day shift. She was sitting in the day room around peers. She greeted evening shift staff. She talked with other peers and staff in the evening, about leaving tomorrow morning at 9 she said. She said "could I mess up tonite and not be discharged?". She was med. compliant, was continent and incontinent tonite, asked for salty cracker and noted thirsty also. She was polite, cooperative, alert/oriented x 3, socialable with staff and peers appropriately, calm, and organized, saying thank you also.
[2019-11-12 08:01] VITALS: BP 146/71
[2019-11-12 08:21] VITALS: BP 146/71
[2019-11-12] MEDS ORDERED: CARDIZEM CD120 MG PO (08:40)
[2019-11-12] MEDS ORDERED: SENNA-TIME S T1 EACH PO (08:40)
[2019-11-12] MEDS ORDERED: CHLORPROMAZINE200 MG PO (08:40)
[2019-11-12] MEDS ORDERED: DEPAKOTE125 MG PO (08:40)
[2019-11-12] MEDS ORDERED: CHLORPROMAZINE25 M1 PO (08:40)
[2019-11-12] MEDS ORDERED: CHLORPROMAZINE25 M3 PO (08:40)
[2019-11-12] MEDS ORDERED: DEPAKOTE 250MG250 M1 PO (08:40)
--- NOTE | 2019-11-12 08:54 | NUR ---
SW made packet, provided staff with NH report phone numbers and sent the d/c instructions/orders and packet report to [facility].
--- NOTE | 2019-11-12 09:31 | NUR ---
DISCHARGE INSTRUCTIONS REVIEWED VIA PHONE WITH GUARDIAN DAUGHTER FER STANFORD-SHE STATES UNDERSTANDING OF MEDICATIONS,FOLLOW UP AND WHEN TO SEEK [place]. REPORT CALLED TO MANOJ AT [facility]-SPOKE WITH [employer] PAPERWORK FAXED AND PACKET SENT WITH PATIENT ALONG WITH PERSONAL BELONGINGS.
--- NOTE | 2019-11-13 22:05 | D ---
[facility] [place] [address] DISCHARGE SUMMARY Name: SEEMA CAGE Room #: 525B-B [facility] IN M.R.#: [id number] Admission: 09/29/19 Attend Phys: Nahun Coughlin DO Discharge: 11/12/19 Date of : 50 Report #: [id number] THIS REPORT FOR: //name// CC: Nahun Pimentel DATE OF SERVICE: 11/12/2019 INPATIENT PSYCHIATRIC DISCHARGE SUMMARY ATTENDING PHYSICIAN: Nahun Coughlin DO. FILL PLANT OPERATOR: Connor Pimentel MD DISCHARGE DIAGNOSES: Bipolar 1 disorder, most recent episode manic with psychotic features, improved; neurocognitive disorder, unspecified. Medical comorbidities are as follows: Blister on great toe, resolved; history of urosepsis, resolved. Other comorbidities would be constipation. DISCHARGE PLAN: The patient is discharging to [facility] assisted living facility. Psychiatric and medical care to be provided by the receiving facility. DIET: Going to be regular with thin liquids. The patient should have Ensure twice a day, Magic Cup with dinner. DISCHARGE MEDICATIONS: Are as follows: Diltiazem 240 mg p.o. daily for hypertension, Depakote 875 mg p.o. b.i.d. for mood stabilization, chlorpromazine 225 mg p.o. 3 times a day at 8, 3, and 10 for psychosis, 50 mg p.o. q. 6 p.r.n. for severe agitation, senna and docusate 2 tabs p.o. b.i.d., recommend psychiatric followup within 2 weeks and medical followup within 1 month. Of note, the patient had previously been seen on the [facility] by Dr. Maynor Childers. REASON FOR ADMISSION: The patient was readmitted to the Psychiatry Unit after being hospitalized medically for urosepsis due to unresolved impulsivity, agitation. HOSPITAL COURSE: When she was brought back to Geriatric Psychiatry, we restarted a chlorpromazine titration having reached to a substantial dosage of 225 mg 3 times a day. The patient continued to have mood lability, so Depakote was started and titrated to a current dose of 875 mg twice a day with last blood level on 11/07. During the course of the admission, we had variable degrees of the patient's noncompliance, putting herself on the floor occasionally, throwing beverage and other items at others, did not require physical restraint. We did have some seclusions with the patient and certainly [address] [address] DISCHARGE SUMMARY Name: SEEMA CAGE Room #: 525B-B [facility] IN ..#: [id number] Admission: 09/29/19 Attend Phys: Nahun Coughlin DO Discharge: 11/12/19 Date of : 50 Report #: [id number] some chemical restraints. The patient has a high level of intellect and awareness of her surroundings, but almost childish behavior, therefore it is difficult to pin down a dementia syndrome; certainly frontal lobar will be a possibility given it does not appear to be of amnestic in nature. However, I did not really have the patient in a position to be tested by neuropsychologist. Therefore, this option will be deferred to outpatient. Her son and a daughter are both very involved in the admission. CONDITION AT DISCHARGE: Stable. PHYSICAL EXAMINATION: MUSCULOSKELETAL: Normal gait and station VITAL SIGNS: Temperature is 36.3, pulse 78, respirations 18, BP 146/71, O2 sat 99%. MENTAL STATUS EXAMINATION: This is a well-developed, slightly disheveled female wearing glasses. Attention fair. Concentration fair. Speech is normal, rate, rhythm, and tone. Positive nonphysiologic movements of bilateral hands. No frequency. No psychomotor agitation or psychomotor retardation. Denied SI or HI. Denied hopelessness, helplessness. Denied suicidal or homicidal intent or plan. Memory not formally tested. Insight limited. Judgment limited. Fund of knowledge above average. Please note, the patient is under a full care in this guardianship. PROGNOSIS: For this patient is guarded given the length of stay, the only modest improvement and the potential for her to become septic as was seen during her stay at [facility]. <ELECTRONICALLY SIGNED> By: Nahun Coughlin DO 11/13/19 [id number] Nahun Coughlin DO /nt
== END 2019-11-12 10:21 | DRG 885 ==
LOC: SBH 18:00
PROVIDERS: Family Medicine; Hospitalist; Nurse Practitioner Psychiatric/Mental Health; ADMIT Psychiatry & Neurology Psychiatry
DX: F31.2 Bipolar disorder, current episode manic severe with psychotic features (principal); N17.9 Acute kidney failure, unspecified; N39.0 Urinary tract infection, site not specified; K59.00 Constipation, unspecified; I10 Essential (primary) hypertension; E83.52 Hypercalcemia; S90.421A Blister (nonthermal), right great toe, initial encounter; F03.90 Unspecified dementia, unspecified severity, without behavioral disturbance, psychotic disturbance, mood disturbance, and anxiety; F39 Unspecified mood [affective] disorder; F60.89 Other specific personality disorders; T55.0X1A Toxic effect of soaps, accidental (unintentional), initial encounter; Y92.231 Patient bathroom in hospital as the place of occurrence of the external cause; E86.0 Dehydration; F01.50 Vascular dementia, unspecified severity, without behavioral disturbance, psychotic disturbance, mood disturbance, and anxiety; Z88.0 Allergy status to penicillin; Z88.1 Allergy status to other antibiotic agents; Z88.8 Allergy status to other drugs, medicaments and biological substances; Z99.3 Dependence on wheelchair; X58.XXXA Exposure to other specified factors, initial encounter; Y93.89 Activity, other specified; Y92.89 Other specified places as the place of occurrence of the external cause; Y99.8 Other external cause status
CPT/HCPCS: 10880